=== PATIENT | male | born 1990 | race Caucasian/White ===

== ENCOUNTER 2018-09-14 14:47 | Emergency (ER) | payer SELFPAY ==
[2018-09-14 14:48] VITALS: BP 143/84; PULSE 67; RESP 19; TEMP 37; O2SAT 98; BMI 22.1
--- NOTE | 2018-09-14 15:36 | ED.VISSUMM ---
- ER Visit Summary Date of Service: 09/14/18 Chief Complaint: Abscess History of Present Illness: The patient is a 27 M with a right facial absences yesterday since he tried to squeeze a pimple. Physical Examination: He is got a 2 cm induration and fluctuant region right cheek. No cellulitis Emergency Department Course and Treatment: 1% lidocaine was used, sterile conditions, #11 blade. There is a small incision about the loculations, gently irrigated. Patient tolerated procedure well. I will place him on clindamycin. Discharge stable condition Impression: Abscess face Incision and drainage This note was generated with [employer] dictation software. It may contain incorrect words, spelling, and punctuation that were not noted in review of the chart prior to signing ED Disposition - Plan for ED Patient: Disposition: Home or Assisted Living Instructions: ED Abscess IandD Prescriptions: Hydrocodone Bitart/Apap 5-325 [[place] 5MG-325MG] 1 tab PO Q4H PRN PRN 2 Days #5 tab PRN Reason: Pain Clindamycin [Cleocin] 300 mg PO TID #30 cap Referrals: Care Physician,No Primary [Primary Care Provider] - 3-5 Days
--- NOTE | 2018-09-14 15:40 | ED.DCSUM_ITS ---
- ER Visit Summary Date of Service: 09/14/18 Chief Complaint: Abscess History of Present Illness: The patient is a 27 M with a right facial absences yesterday since he tried to squeeze a pimple. Physical Examination: He is got a 2 cm induration and fluctuant region right cheek. No cellulitis Emergency Department Course and Treatment: 1% lidocaine was used, sterile conditions, #11 blade. There is a small incision about the loculations, gently irrigated. Patient tolerated procedure well. I will place him on clindamycin. Discharge stable condition Impression: Abscess face Incision and drainage This note was generated with [employer] dictation software. It may contain incorrect words, spelling, and punctuation that were not noted in review of the chart prior to signing ED Disposition - Plan for ED Patient: Disposition: Home or Assisted Living Instructions: ED Abscess IandD Prescriptions: Hydrocodone Bitart/Apap 5-325 [[place] 5MG-325MG] 1 tab PO Q4H PRN PRN 2 Days #5 tab PRN Reason: Pain Clindamycin [Cleocin] 300 mg PO TID #30 cap Referrals: Care Physician,No Primary [Primary Care Provider] - 3-5 Days
[2018-09-14 15:46] VITALS: BP 138/88; PULSE 78; RESP 16; O2SAT 98
[2018-09-14] MEDS: Clindamycin HCl 150 MG Capsule 450 MG PO (15:46)
== END 2018-09-14 15:50 | disposition home or self-care (01) ==
PROVIDERS: Emergency Provider Emergency Medicine
DX: L02.01 Cutaneous abscess of face (principal); Z72.0 Tobacco use
CPT/HCPCS: 10060; 99283

== ENCOUNTER 2021-08-08 17:42 | Emergency (ER) | payer MEDICAID, SELFPAY ==
[2021-08-08 17:43] VITALS: BP 123/71; PULSE 70; RESP 14; TEMP 36.3; O2SAT 99; BMI 29.2
[2021-08-08] MEDS: traMADol 50 MG Tablet 100 MG PO (18:01)
--- NOTE | 2021-08-08 18:05 | RAD_ITS ---
STUDY: X-RAY - RIGHT RADIUS AND ULNA REASON FOR EXAM: Male, 30 years old. Injury TECHNIQUE: 2 view(s) of the forearm. COMPARISON: None. FINDINGS: There is no demonstrated soft tissue swelling. Normal visualized radius. Normal visualized ulna. RAD/Forearm 2 Views IMPRESSION: Normal x-ray examination of the radius and ulna. Electronically Signed: Naomie Jeffers MD at 18:20 EDT ,
--- NOTE | 2021-08-08 18:06 | EX.ED.UPPERE ---
HPI History of Present Illness Chief Complaint: Upper Extremity Injury Informant: patient Occured/Mechanism Mechanism/Context: Yes blunt trauma and Yes fall Onset/Context/Timing Onset: Today (JPTA) Context: Sudden Onset Timing: Continuous Quality of Pain: Throbbing Location: right mid-forearm, more ulnar Current Severity: Severe Maximum Severity: Severe Worsened by: movement wrist, palpation Relieved by: remaining still, ice pack; Tylenol not really helping Associated Symptoms Associated Symptoms: Negative for Parasthesia, Weakness and Loss of Funtion Narrative Narrative: Patient states he was walking up some steps and slipped with one of his feet and as he was falling forward he braced himself and try to catch himself with his right upper extremity, hitting the concrete step against his mid right ulna. He is complaining of lots of pain in the middle of his right forearm. He has no wrist or elbow pain or other injury. [facility] Medical History History of fracture Home Medications NK 08/08/21 [History Last Taken Unknown] Allergy/AdvReac Type Severity Reaction Status Date / Time amoxicillin [Amoxicillin] Allergy Rash Verified 08/08/21 17:43 Surgical History no surgical history Social History Smoking Status: Current every day smoker tobacco type: cigarettes ROS ROS ED Constitutional Constitutional ED: Denies chills or fever(s) Musculoskeletal Musculoskeletal: Reports extremity pain; Denies neck pain Integumentary Denies Abrasions, rash or wounds Neurologic Neurologic: Denies paresthesias or weakness EXAM Physical Exam Const Vital Signs: 08/08/21 17:43 Temperature 97.4 F L Temperature Source Temporal Pulse Rate 70 Respiratory Rate 14 Blood Pressure 123/71 H Blood Pressure Mean 88 Pulse Ox 99 Oxygen Delivery Method Room Air Positive well nourished and well developed General Appearance ED: well developed and NAD Neck full ROM and supple Back/Spine normal ROM and normal to inspection Extremity Extremity Narrative: Tenderness in the right mid forearm without deformity. He has good range of the wrist and elbow without any bony prominence tenderness there. Neurovascular intact distally. Neuro oriented x3, no focal motor deficits and no sensory deficits noted Sensorium / Orientation: alert Psych mental status grossly normal and thought process normal Skin no wounds Rashes: no rashes MDM MDM MDM Narrative Medical decision making narrative: My interpretation 2 view x-ray series of the right forearm is negative for any fracture dislocation or other bony abnormality. There is some soft tissue swelling from apparent contusion. Patient is reassured, he was given some tramadol to help with the discomfort, supportive care advised. Discharge Plan Triage Chief Complaint: Upper Extremity Injury ED Provider: Shawn Trejo Dx/Rx/DC Orders Clinical Impression: Contusion of forearm, right, Fall (on) (from) other stairs and steps, initial encounter Instructions: Bruises (Contusions) Prescriptions: No Action NK RF: 0 Primary Care Provider: Fuad Nash Referrals: Fuad Nash MD [Primary Care Provider] - As Needed Disposition Disposition: Home, Self Care
== END 2021-08-08 18:30 | disposition home or self-care (01) ==
PROVIDERS: Emergency Provider Emergency Medicine; PCP Internal Medicine; Visit Provider Emergency Medicine
DX: S50.11XA Contusion of right forearm, initial encounter (principal); W10.9XXA Fall (on) (from) unspecified stairs and steps, initial encounter; F17.210 Nicotine dependence, cigarettes, uncomplicated
CPT/HCPCS: 73090; 99282

== ENCOUNTER 2021-09-08 12:42 | Emergency (ER) | payer MEDICAID, SELFPAY ==
[2021-09-08 12:43] VITALS: BP 119/80; PULSE 68; RESP 16; TEMP 36.6; O2SAT 99; BMI 28.5
[2021-09-08 12:58] VITALS: O2SAT 98
--- NOTE | 2021-09-08 13:04 | EX.ED.VIS.UR ---
HPI HPI - URI History of Present Illness Chief Complaint: Cough Narrative Narrative: Patient presents with upper respiratory infection type symptoms that has had for the last 3 days. He denies any fever but states he has been chilled with myalgias that are diffuse. Has been coughing. He states he does not feel short of breath. He has not received any COVID immunizations. He denies significant past medical history. He states his had a lot of runny nose and nasal congestion but no sore throat. He did take Mucinex today which upset his stomach and caused him to vomit while he was at work. He states that he is mainly here to make sure that he does not have Covid so that he can return to work. ROS ROS ED ROS Narrative Constitutional: No fever, no chills. HEENT: No sore throat. No neck pain. No loss of vision. Positive rhinorrhea with alternating nasal congestion. Cardiovascular: No chest pain. No palpitations. No pedal edema. Respiratory: Positive nonproductive cough, no shortness of breath. Abdominal: No abdominal pain. No nausea. No vomiting. Genitourinary: No dysuria. No hematuria. Musculoskeletal: Diffuse myalgias. No arthralgias. Neurologic: No headaches. No dizziness. No lightheadedness. Fleeting paresthesias of entire body. Skin: No rash. No change in color. Psychiatric: No depression. No anxiety. [facility] Medical History History of fracture Home Medications NK 08/08/21 [History Last Taken Unknown] Allergy/AdvReac Type Severity Reaction Status Date / Time amoxicillin [Amoxicillin] Allergy Rash Verified 09/08/21 12:46 Social History Smoking Status: Current every day smoker tobacco type: cigarettes EXAM Physical Exam Narrative Exam Narrative: Afebrile. Vital signs noted. Nontoxic-appearing. HEENT: Normocephalic. Atraumatic. PERRL, EOMI. Neck soft and supple. No point tenderness or step off. Cardiovascular: Regular rate and rhythm. No murmurs, rubs, or gallops appreciated. Respiratory: No tachypnea. Lungs clear to auscultation bilaterally. Gastrointestinal: Abdomen soft, nontender, with normoactive bowel sounds. No rebound or guarding. Neurological: Awake. Alert. Nonfocal, nonlateralizing. Skin: No rash. Normal color. No pallor. Musculoskeletal: No pedal edema. Full range of motion extremities. Const Vital Signs: 09/08/21 12:43 09/08/21 12:58 Temperature 97.9 F Temperature Source Temporal Pulse Rate 68 Respiratory Rate 16 Respiratory Effort Normal Respiratory Depth Normal Respiratory Pattern Normal Blood Pressure 119/80 Blood Pressure Mean 93 Pulse Ox 99 Oxygen Delivery Method Room Air Room Air MDM MDM MDM Narrative Medical decision making narrative: I do not feel chest x-ray is indicated. I do feel that he probably has a URI that is viral in nature. He was swabbed for Covid and influenza. He is positive for COVID-19, negative for influenza. His pulse ox is 99% on room air without evidence of hypoxia. I do not feel that Decadron is indicated. Additionally, I did offer him an albuterol inhaler, but he states he is not short of breath that he is merely coughing. He will take [id number] medications as needed and follow-up with her primary care physician. He was given a note to be off work for the next 5 days and encouraged to self isolate at home. I feel he can be discharged safely home with follow-up. Return instructions were reviewed. Disposition is discharged home in stable condition. Discharge Plan Triage Chief Complaint: Cough ED Provider: Ariel Murphy Dx/Rx/DC Orders Clinical Impression: COVID-19, Myalgia, Cough Instructions: Coronavirus Disease 2019 (COVID-19): Caring for Yourself or Others Prescriptions: No Action NK RF: 0 Stand Alone Forms: ED Work / School Excuse Primary Care Provider: Care Physician,No Primary Referrals: Temitope Guzman MD [STAFF PHYSICIAN] - 1 Week if not improving Care Physician,No Primary [Primary Care Provider] - Disposition Disposition: Home, Self Care
[2021-09-08 14:04] VITALS: BP 126/78; PULSE 66; RESP 16; TEMP 37.1; O2SAT 98
== END 2021-09-08 14:05 | disposition home or self-care (01) ==
PROVIDERS: Emergency Provider Emergency Medicine; Visit Provider Emergency Medicine
DX: U07.1 COVID-19 (principal); F17.210 Nicotine dependence, cigarettes, uncomplicated
CPT/HCPCS: 87428; 99282

== ENCOUNTER 2022-07-11 09:37 | Emergency (ER) | payer MEDICAID, SELFPAY ==
[2022-07-11 09:39] VITALS: BP 131/79; PULSE 80; RESP 17; TEMP 36.7; O2SAT 99; BMI 25.5
--- NOTE | 2022-07-11 09:55 | EDS_ITS ---
HPI History of Present Illness Chief Complaint: Laceration Detail of Chief Complaint: Laceration left index finger Informant: patient Narrative Narrative: Patient presents the emergency department with complaint of laceration to his left index finger. Patient states that he was hooking up with a hydraulic hose to the [place] he was about to use and he accidentally had the handle depressed and it started to spin and lacerated the dorsum of his left index finger over the DIP joint. Patient is up-to-date on tetanus. Patient states that he uses both arms at different times as he can switch for different activities. [facility] Medical History History of fracture Home Medications NK 08/08/21 [History Last Taken Unknown] Allergy/AdvReac Type Severity Reaction Status Date / Time amoxicillin [Amoxicillin] Allergy Rash Verified 07/11/22 09:37 Social History Smoking Status: Current every day smoker tobacco type: cigarettes ROS ROS ED Review of Systems ROS Unobtainable: other Constitutional Constitutional ED: Reports lethargy; Denies chills, fever(s), sweats or weight loss Eyes Eyes: Denies blurry vision, change in vision or diplopia ENT ENT ED: Denies rhinorrhea or sore throat Cardiovascular Cardiovascular: Denies chest pain, orthopnea or racing heartbeat Respiratory/Chest Respiratory/Chest: Denies cough, dyspnea, dyspnea on exertion, orthopnea or sputum Gastrointestinal Gastrointestinal: Denies abdominal pain, diarrhea, nausea or vomiting Genitourinary Genitourinary ED: Denies dysuria, hematuria or urinary frequency Musculoskeletal Musculoskeletal: Denies arthralgias, back pain, myalgias or neck pain Integumentary Reports other Details: Laceration to dorsum of left index finger ; Denies abscess, Abrasions or rash Neurologic Neurologic: Denies headache(s) or weakness Psychiatric Psychiatric: Denies anxiety, depression or suicidal thoughts Endocrine Endocrinology: Denies polydipsia, polyphagia or polyuria Hematologic/Lymphatic Hematologic/Lymphatic: Denies easy bleeding, easy bruising or lymphadenopathy Allergic/Immunologic Allergic/Immunologic ED: Denies mouth swelling, tongue swelling or urticaria EXAM Physical Exam Const Vital Signs: 07/11/22 09:39 Temperature 98.0 F Temperature Source Temporal Pulse Rate 80 Respiratory Rate 17 Blood Pressure 131/79 H Blood Pressure Mean 96 Pulse Ox 99 Oxygen Delivery Method Room Air Positive well nourished and well developed General Appearance ED: well developed and NAD HEENT Reports TM's clear and moist mucous membranes normocephalic and atraumatic; Negative for trauma or tenderness Tympanic Membrane ED: Yes TM's clear Eyes PERRL and EOMs intact bilaterally General Eye ED: Negative for pale conjunctiva or scleral icterus Neck no lymphadenopathy, supple and no JVD General: Negative for tenderness Chest Wall inspection of chest normal and palpation of chest normal Chest: Negative for tenderness Resp normal respiratory effort and clear to auscultation bilaterally Effort and Inspection: Negative for respiratory distress or pain with movement Auscultation: Negative for rhonchi, wheezes or diminished lung sounds Cardio regular rate, regular rhythm, S1 normal heart sound, S2 normal heart sound and no murmurs Peripheral Pulses: pulses 2+ throughout GI normal to inspection, nondistended, normoactive bowel sounds, soft to palpation, non-tender, non-distended and no masses Back/Spine no CVA tenderness and no thoracic nor lumbar tenderness Extremity Extremity Narrative: Left index finger-patient has a 1 cm laceration over the dorsum of the DIP joint. Laceration is superficial just barely through the epidermis. There is no fat extruding. Has normal range of motion flexion extension at the DIP and PIP joint. He is neurovascular intact. No active bleeding. General Extremety ED: Negative for edema General Extremity: Negative for edema Neuro oriented x3, CN's II-XII intact bilaterally, no sensory deficits noted and gait normal Sensorium / Orientation: awake, alert, oriented to person, oriented to place and oriented to time Motor Exam: strength 5/5 throughout and strength abnormal Psych mental status grossly normal Skin no rashes or lesions noted and no wounds MDM MDM MDM Narrative Medical decision making narrative: Patient has a laceration of 1 cm over the dorsum of the DIP joint of the left index finger. Laceration is superficial. There is no active bleeding. Recommended cleaning the wound and applying Steri-Strips and a clean dressing. Patient is comfortable with this as he does not want stitches. Patient advised to keep an eye out for signs of infection such as redness, swelling, purulent drainage, or if condition should worsen anyway. Patient advised to follow-up with primary care physician in 3 to 5 days for wound check. Discharge Plan Triage Chief Complaint: Laceration ED Provider: Manolo Fernandez Dx/Rx/DC Orders Clinical Impression: Laceration of left index finger Instructions: ED Laceration Small or ... Prescriptions: No Action NK Primary Care Provider: Care Physician,No Primary Referrals: Fuad Nash MD [Med Staff - [employer]] - 3-5 Days Care Physician,No Primary [Primary Care Provider] - Disposition Disposition: Home, Self Care
[2022-07-11 10:04] VITALS: BP 118/79; PULSE 82; RESP 16; O2SAT 97
== END 2022-07-11 10:20 | disposition home or self-care (01) ==
LOC: ED 10:08
PROVIDERS: Emergency Provider Emergency Medicine; PCP Internal Medicine; Visit Provider Emergency Medicine
DX: S61.211A Laceration without foreign body of left index finger without damage to nail, initial encounter (principal); F17.210 Nicotine dependence, cigarettes, uncomplicated; W31.2XXA Contact with powered woodworking and forming machines, initial encounter
CPT/HCPCS: 99282

== ENCOUNTER 2024-02-09 20:50 | Emergency (ER) | payer SELFPAY ==
[2024-02-09 20:50] VITALS: BP 132/86; PULSE 120; RESP 16; TEMP 36.6; O2SAT 98; BMI 24.3
--- NOTE | 2024-02-09 21:56 | ED.RN ---
Pt observed ambulating out of dept yerogelioing I'm tired of this bullshit.
== END 2024-02-09 21:30 | disposition left against medical advice (07) ==
LOC: ED 22:57
PROVIDERS: PCP Internal Medicine
DX: H66.41 Suppurative otitis media, unspecified, right ear (principal); Z53.21 Procedure and treatment not carried out due to patient leaving prior to being seen by health care provider

== ENCOUNTER 2024-02-12 17:11 | Emergency (ER) | payer SELFPAY ==
[2024-02-12 17:11] VITALS: BP 135/79; PULSE 89; RESP 16; TEMP 37; O2SAT 100; BMI 23.8
--- NOTE | 2024-02-12 18:06 | EX.ED.DYSGE1 ---
HPI History of Present Illness Chief Complaint: Ear Problem Detail of Chief Complaint: Abscess or cyst from right ear canal. Informant: patient Onset/Context/Timing Onset: Days Context: Gradual Onset Timing: Continuous Current Severity: Mild Maximum Severity: Mild Narrative Narrative: Healthy 33-year-old male. Said he had right external ear canal pain for the last week. Monday night he came emerged part to be seen he said we were busy so he left and he pierces himself with a clean piercing needle. He has had some drainage since that time. But it is reaccumulated. Plan discomfort. Prior similar symptoms: Yes Recent Illness/Hospitalization: No PFSH PFSH Medical History History of fracture Home Medications ?Medication ?Instructions ?Recorded ?Last Taken ?Type cephalexin 500 mg capsule 500 mg PO Q6 7 days #28 CAPSULES 02/12/24 Unknown Rx Social History Smoking Status: Current every day smoker tobacco type: cigarettes ROS ROS ED ROS Narrative Denies recent illness. Constitutional Constitutional ED: Denies chills or fever(s) Eyes Eyes: Denies blurry vision ENT ENT ED: Denies ear pain Cardiovascular Cardiovascular: Denies chest pain Respiratory/Chest Respiratory/Chest: Denies cough or dyspnea Gastrointestinal Gastrointestinal: Denies abdominal pain Genitourinary Genitourinary ED: Denies dysuria or hematuria Musculoskeletal Musculoskeletal: Denies arthralgias Neurologic Neurologic: Denies headache(s) Psychiatric Psychiatric: Denies anxiety or depression Endocrine Endocrinology: Denies cold intolerance Hematologic/Lymphatic Hematologic/Lymphatic: Reports none Allergic/Immunologic Allergic/Immunologic ED: Denies mouth swelling, tongue swelling or urticaria EXAM Physical Exam Narrative Exam Narrative: Well-appearing 33-year-old male. Vital signs stable afebrile. H EENT exam pupils round react to light. Audible piercings. Right ear externally right at the opening of the ear canal he has a cyst or abscess. About the size of a pea. Neck nontender no lymphadenopathy. Lungs clear. Heart regular rhythm no murmur. Otherwise exam unremarkable. Const Vital Signs: 02/12/24 17:11 Temperature 98.6 F Temperature Source Temporal Pulse Rate 89 Respiratory Rate 16 Blood Pressure 135/79 H Blood Pressure Mean 97 Pulse Ox 100 Oxygen Delivery Method Room Air Positive well nourished and well developed; Negative for obese, cachectic, contractures or unkempt General Appearance ED: well developed and NAD; Negative for unkempt, cachectic, contractures, cyanotic, diaphoretic or pallor Nutritional Appearance: Negative for cachectic or obese HEENT Reports moist mucous membranes; Denies dry mucous membranes HEENT Narrative: Right external ear canal is a cyst or abscess. Negative for trauma or tenderness Mouth ED: No dry mucous membranes Mouth: No dry mucous membranes Eyes PERRL and EOMs intact bilaterally General Eye ED: Negative for pale conjunctiva or scleral icterus Neck no lymphadenopathy, supple and no JVD General: Negative for tenderness Lymph Lymphatic: Negative for other Chest Wall inspection of chest normal and palpation of chest normal Chest: Negative for other Resp normal respiratory effort and clear to auscultation bilaterally Effort and Inspection: Negative for retractions Auscultation: Negative for rales, rhonchi, wheezes or diminished lung sounds Cardio regular rate, regular rhythm, S1 normal heart sound, S2 normal heart sound and no murmurs GI normal to inspection, nondistended, normoactive bowel sounds, non-tender, non-distended and no masses Inspection: Negative for abdominal distention Auscultation: normoactive bowel sounds Palpation: soft; Negative for tender, guarding or rebound tenderness present Back/Spine no CVA tenderness Neuro oriented x3 and CN's II-XII intact bilaterally Sensorium / Orientation: alert Motor Exam: strength 5/5 throughout Psych mental status grossly normal Appearance: Negative for unkempt Attitude: No agitated Mood & Affect: Negative for depressed, anxious or tearful Skin no rashes or lesions noted, no wounds and skin turgor normal General Skin Exam: Negative for jaundice or pallor Lesions: No lesion noted Rashes: No rashes noted Trauma: Negative for abrasion Wounds: Negative for wounds noted MDM MDM MDM Narrative Medical decision making narrative: 33-year-old male with either a cyst or abscess at the ear canal opening. Will apply let to it. Then locally anesthetized with lidocaine. And make an incision and drainage. Incise and drain the right ear canal abscess. Is on the external surface. Let was previously applied. The night injected the area with about 2 to 3 cc of lidocaine. Made about 1/2 inch incision. Currently there was no pus. Mild bleeding. I then reevaluated the ear canal the canal itself is unremarkable proximal to the abscess and drained. But it looks like he has had a prior tympanic membrane rupture. Patient did not not have any history of that. He will be placed on Keflex 500 mg 4 times a day for a week. Follow-up with ENT if not resolving. History & Record Review Discussion w/independent historian: Patient and Significant other Procedures Other Procedures Procedure(s): Right ear canal abscess. Let applied. Injected with lidocaine. Cleaned with iodine prior. Made a small half inch incision. Currently no pus small amount of blood. Too small to pack. Patient instructed on wound care. ENT follow-up if not resolving. Placed on Keflex. Discharge Plan Triage Chief Complaint: Ear Problem Other Complaint: Abscess ED Provider: Pablo Murrell Dx/Rx/DC Orders Clinical Impression: Abscess of ear canal Instructions: ED Abscess Incision And Drainage Prescriptions: New cephalexin 500 mg capsule 500 mg PO Q6 7 Days Qty: 28 0RF Primary Care Provider: Fuad Nash Referrals: Nick Wolff MD [Med Staff - Active Staff] - 1 Week if not improving Fuad Nash MD [Primary Care Provider] - Activity Restrictions/Additional Instructions: Motrin and Tylenol for pain. The antibiotic Keflex 1 pill 4 times a day for 1 week. Warm compresses to your ear. Follow-up with the ENT doctor, Dr. Nick Milan if not going away to have this reevaluated and possibly surgically resected. Print Language: Hungarian Disposition Disposition: Home, Self Care
[2024-02-12] MEDS: Lidocaine 1% (20 ml mdv) 20 ML Vial 5 ML INFILT (18:32)
[2024-02-12] MEDS: Cephalexin 250 MG Capsule 500 MG PO (19:26)
[2024-02-12] MEDS: Lidocaine/Epi/Tetracaine 50 ML 1 APPLIC TOPICAL (19:26)
== END 2024-02-12 19:30 | disposition home or self-care (01) ==
PROVIDERS: Emergency Provider Emergency Medicine; PCP Internal Medicine; Visit Provider Emergency Medicine
DX: H60.01 Abscess of right external ear (principal); F17.210 Nicotine dependence, cigarettes, uncomplicated
CPT/HCPCS: 69000; 99284

== ENCOUNTER 2024-02-29 14:24 | Day surgery (SDC) | payer SELFPAY ==
[2024-02-29] VITALS (9 sets, daily range): BP systolic 123–143; BP diastolic 79–96; PULSE 80–101; RESP 16–22; TEMP 36.6–37; O2SAT 95–99; BMI 22.4
--- NOTE | 2024-02-29 14:55 | PCM.PRE.AN2 ---
ASA Classification* ASA Classification ASA Classification: 2 Assessment & Plan Anesthesia* Anesthesia Assessment Anesthesia Assessment: Discussed sedation and/or anesthesia options, risks, benefits, and alternatives with patient/parents/legal guardian/POA. Questions invited. The patient/parents/legal guardian/POA seems to understand and agrees to proceed with anesthesia plan. Reviewed the physical assessment, medical history, allergy history and patient home medications list prior to surgery/procedure/anesthetic and documented any changes. Performed airway and anesthesia risk assessments. 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 When Was Last Pacemaker Check QUESTION #4 FULL TEXT: You/Your Family Experience fever (hyperthermia) with Anesthesia Last Oral Intake Last Oral intake: Last Oral Intake NPO since Meds taken in AM with sips of water? Meds patient instructed to take am of surgery PONV PONV - market research coordinator: PONV - market research coordinator Female HX of Motion Sickness HX of N/V After Surgery Non-Smoker Duration of Surgery greater than 60 minutes Number of Risk Factors PONV Score Height & Weight Height & Weight: Anesthesia: Height & Weight Height 5 ft 8 in 02/12/24 17:11 Respiratory Assessment Respiratory Assessment - market research coordinator: Respiratory Tract Infection Hx - market research coordinator Hx Respiratory Tract Infection STOP Sleep Apnea STOP Sleep Apnea - market research coordinator: STOP Sleep Apnea - market research coordinator Hx Hypertension Hx Sleep Apnea CPAP BIPAP Do you snore loudly (louder than talking or can be heard Do you often feel tired/ fatigued/ sleepy during daytime? Has anyone observed you stop breathing during sleep? STOP Results QUESTION #5 FULL TEXT : Do you snore loudly (louder than talking or can be heard through closed doors)? Tobacco Use History Tobacco Use History - market research coordinator: Tobacco Use History - market research coordinator Tobacco Use Smoking Status Current every day smoker 02/12/24 17:35 Hx Tobacco Use Yes 06/03/17 17:18 Years Smoking Packs Smoked per Day Smoking Cessation Date was within the last 15 years Hx Smoking Cessation Date Hx Smoking Cessation No 02/12/24 17:35 Counseling Hematologic Medial History Hematologic Hx - market research coordinator: Hematologic Medical Hx - applied psychology chair Hx of Blood Transfusion Hx of Transfusion in last 3 Months Date of Last Transfusion (if within last 3 months) Ever experience any problems with transfusion(s)? Specify any problems Hx of Preganancy in last 3 Months Nurse Filling Out Transfusion & Questions: Date: Time: Patient unable to answer at this time (ie. confused, unrespo /Reproduction History /Reproductive History - market research coordinator: /Reproductive Hx- market research coordinator Hx Now Gestational Age (in weeks): EDC: Hx Hx Para Hx Section SAB Active Medications Active Medications: Current Medications Generic Name Dose Route Start Last Admin Trade Name Freq PRN Reason Stop Dose Admin Lactated Ringer's 1,000 mls @ 15 mls/hr 02/29/24 14:30 IV .Q48H DES PFSH Medical History History of fracture Home Medications ?Medication ?Instructions ?Recorded ?Last Taken ?Type NK 02/29/24 Unknown History Allergy/AdvReac Type Severity Reaction Status Date / Time No Known Allergies Allergy Verified 02/29/24 14:55 Social History Smoking Status: Current every day smoker tobacco type: cigarettes Review of Systems (Anesthesia) ROS Narrative System reviewed and no additional complaints, except as documented.
[2024-02-29] MEDS: Lactated Ringers 1,000 ML 15 ML IV (15:00)
[2024-02-29] MEDS: Cefazolin 2 GM in 0.9% Normal Saline (100mL Bag) 100 ML IV (15:21)
--- NOTE | 2024-02-29 15:30 | RAD_ITS ---
INDICATION: FX EXAMINATION/TECHNIQUE: X-RAY - LEFT XR Wrist 2 Views 3 VIEWS COMPARISON: No relevant prior comparison study available FINDINGS: 2 views of the wrist were obtained intraoperatively on a C-arm following open reduction internal fixation of fracture of the distal radius. Fluoroscopy time: 46 seconds. Radiation dose: 0.51 mGy. RAD/Wrist 2 Views IMPRESSION: Intraoperative exam as described above. Electronically Signed: Jeanmarie Vaca MD at 18:26 EDT ,
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
--- NOTE | 2024-02-29 17:00 | PCM.POST.ANE ---
Anesthesia: Postop Eval I Current Vital Signs Temperature: 98.6 F Pulse Rate: 97 Blood Pressure: 131/87 Respiratory Rate: 16 Pulse Ox: 95 Oxygen Delivery Method: Room Air Assessment Airway patent: Yes Spontaneous unlabored respirations: Yes Mental status: Awake nausea: No Vomiting: No Anesthesia Complication: No Fluid Hydration Crystalloid volume administer (ml): 950 Total IV fluid infused: 950 Progress Note Anesthesia document: Postop Eval 1 completed: Yes
--- NOTE | 2024-02-29 17:01 | PCM.POSTANE2 ---
Anesthesia Postop Eval I Sum Postop Eval Completion status Anesthesia document: Postop Eval 1 completed: Yes Anesthesia Postop Eval I Summary Anesthesia Postop Eval I Summary: Anesthesia Postop Eval I: Assessment Summary Airway patent Yes 02/29/24 17:01 Spontaneous unlabored Yes 02/29/24 17:01 respirations Mental status Awake 02/29/24 17:01 nausea No 02/29/24 17:01 Vomiting No 02/29/24 17:01 Anesthesia Postop Eval I: Fluid Summary Crystalloid volume administer 950 02/29/24 17:01 (ml) Colloids volume administered ( ml) Blood Product volume administered (ml) Total IV fluid infused 950 02/29/24 17:01 Anesthesia Postop Eval I: Summary Notes Anesthesia Complication No 02/29/24 17:01 Anesthesia Complication Comment: Post-operative progress note Anesthesia: Postop Eval II Evaluation Mental status: Awake Pain Level: 2 nausea: No Vomiting: No
[2024-02-29] MEDS: oxyCODONE 5 MG Tablet 10 MG PO (17:29)
[2024-02-29] MEDS: Acetaminophen 500 MG Tablet 1000 MG PO (17:30)
== END 2024-02-29 18:10 | disposition home or self-care (01) ==
LOC: SDC 14:27 → AC 14:28
PROVIDERS: PCP Internal Medicine; Referring Provider Internal Medicine; Visit Provider Student in an Organized Health Care Education/Training Program
PROC: (CPT 25526; principal; 2024-02-29 15:55)
DX: S52.572A Other intraarticular fracture of lower end of left radius, initial encounter for closed fracture (principal); S52.372A Galeazzi's fracture of left radius, initial encounter for closed fracture; F17.210 Nicotine dependence, cigarettes, uncomplicated; V00.842A Pedestrian on standing electric scooter colliding with stationary object, initial encounter
CPT/HCPCS: 25526; 25609; 01830; 64417; 73100; 76000; C1713; J7120; J2405

== ENCOUNTER 2024-08-11 15:09 | Emergency (ER) | payer MEDICAID, SELFPAY ==
[2024-08-11 15:09] VITALS: BP 149/83; PULSE 89; RESP 16; TEMP 36.9; O2SAT 98; BMI 25.7
--- NOTE | 2024-08-11 15:48 | EDS_ITS ---
HPI History of Present Illness Chief Complaint: Dental Narrative Narrative: Chief complaint and HPI: Left lower molar tooth pain. 33-year-old male with past medical history of schizoaffective disorder, marijuana abuse presents for evaluation of left lower molar pain. Patient states several months ago he developed a fracture in his left lower molar. He states since then he has fractured it 2 other times. He states for the past several months he has been having intermittent pain in that tooth. He states he is scheduled to see a dentist. He states the last several days the pain has worsened. He has been using Orajel, Tylenol, ibuprofen. Denies any fever, chills, nausea, vomiting, difficulty swallowing, difficulty speaking, shortness of breath, chest pain. Review of systems: See HPI Medications: As listed on the chart Allergies: As listed on the chart PFSH: Per chart Vital signs: As listed on the chart. Reviewed. Physical exam: Gen: A&O x3, NAD Head: Normocephalic, atraumatic Eyes: No sclera icterus, conjunctiva clear, PERRL, EOMI ENT: TMs clear BL, moist mucous membranes, posterior oropharynx unremarkable, uvula midline, tongue nonenlarged, no Martin angina or submandibular swelling, tooth #17 is chipped and tender to palpation, no abscess, mild gingiva ir ritation with mild tenderness, tolerating secretions, normal phonation, no facial swelling Neck: Trachea midline, No JVD, Full ROM, No meningismus, no swelling CV: RRR, no murmurs, no peripheral edema Resp: Lungs CTA BL, no w/r/c Skin: Warm, dry, no rash Neuro: Alert, oriented, grossly intact, sensation intact Psych: Cooperative, appropriate mood and affect [facility] Medical History (Updated 08/11/24 @ 15:[address] Isaac Orourke, ) Insomnia Schizo affective schizophrenia Substance abuse Marijuana use Smoker History of fracture Home Medications ?Medication ?Instructions ?Recorded ?Last Taken ?Type oxycodone 5 mg tablet 5 mg PO Q6H PRN pain 5 days #20 02/29/24 Unknown Rx tabs amoxicillin 875 mg-potassium 1 tab PO BID 7 days #14 t abs 08/11/24 Unknown Rx clavulanate 125 mg tablet Allergy/AdvReac Type Severity Reaction Status Date / Time No Known Allergies Allergy Verified 02/29/24 14:55 Social History Smoking Status: Current every day smoker tobacco type: cigarettes EXAM Physical Exam Const Vital Signs: 08/11/24 15:09 Temperature 98.4 F Temperature Source Temporal Pulse Rate 89 Respiratory Rate 16 Blood Pressure 149/83 H Blood Pressure Mean 105 Pulse Ox 98 Oxygen Delivery Method Room Air MDM MDM MDM Narrative Medical decision making narrative: 33-year-old male with past medical history of schizoaffective disorder, marijuana abuse presents for evaluation of left lower molar pain. Patient has a known tooth fracture. See physical exam findings. No dental abscess. Suspect dental infection versus symptomatic tooth fracture. Patient just took ibuprofen and Tylenol prior to arrival. Given his history of marijuana abuse and previous substance abuse, narcotics will not be given. Patient will be given his first dose of Augmentin here. He will be placed on prescription x 7 days. Tylenol and Motrin as needed for pain. Recommended soft diet. Recommended Orajel. Follow-up with dentist. Return precautions explained. He confirmed understand of the plan. Patient stable to discharge home. Impression: 1. Left molar dental infection 2. Left molar dental fracture Discharge Plan Triage Chief Complaint: Dental ED Provider: Isaac Orourke Dx/Rx/DC Orders Clinical Impression: Dental infection Instructions: ED Dental Pain Prescriptions: New amoxicillin-pot clavulanate 875-125 mg tablet 1 tab PO BID 7 Days Qty: 14 0RF No Action oxycodone 5 mg tablet 5 mg PO Q6H PRN (Reason: pain) 5 Days Qty: 20 0RF Primary Care Provider: Fuad Nash Referrals: Fuad Nash MD [Primary Care Provider] - 3-5 Days Activity Restrictions/Additional Instructions: You received your first dose of antibiotics here in the emergency department. Take your second dose this evening. Follow-up with the dentist that you have an appointment with. If you want a new dentist please see the list of dental clinics that was provided to you. Return back to the ED if symptoms change or worsen. Tylenol and ibuprofen as needed for pain. You can take 1 g of Tylenol every 6 hours. You can take 600 mg of ibuprofen every 4-6 hours. Continue Orajel and mouthwash. Continue to brush her teeth. Recommend softer foods. Print Language: [place] Islander Disposition Disposition: Home, Self Care Discharge Date/Time: 08/11/24 16:00
[2024-08-11] MEDS: Amox/Clavulanate 875 MG Tablet PO (16:00)
== END 2024-08-11 16:00 | disposition home or self-care (01) ==
PROVIDERS: Emergency Provider Surgery; PCP Internal Medicine; Referring Provider Surgery; Visit Provider Surgery
DX: K04.7 Periapical abscess without sinus (principal); S02.5XXA Fracture of tooth (traumatic), initial encounter for closed fracture; X58.XXXA Exposure to other specified factors, initial encounter; F17.210 Nicotine dependence, cigarettes, uncomplicated
CPT/HCPCS: 99282

== ENCOUNTER 2025-01-06 12:31 | Emergency (ER) | payer SELFPAY ==
[2025-01-06 12:31] VITALS: BP 126/85; PULSE 105; RESP 14; TEMP 36.6; O2SAT 98; BMI 23.2
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
[2025-01-06] MEDS: HYDROcodone Bitartrate/Apap 5/325 Tablet PO (13:39)
--- NOTE | 2025-01-06 13:40 | RAD_ITS ---
PROCEDURE: FOREARM 2 VIEWS 01/06/2025 REASON FOR EXAM: INJURY TECHNIQUE: FOREARM 2 VIEWS Laterality: Left COMPARISON: None FINDINGS: Two views of the left forearm were obtained and demonstrate a radiopaque plate and screws projected over the distal radius. There is no fracture or loosening of the radiopaque hardware. At the location of the most proximal portion of the plate, there is an obliquely oriented acute fracture. There is displacement of the distal fragment anteriorly by a proximally 100%. Soft tissue swelling is noted. The left wrist joint is intact. The left elbow joint is intact. The ulna bone appears to be intact. RAD/Forearm 2 Views IMPRESSION: Acute, obliquely oriented, displaced fracture through the distal diaphyseal reg ion left radius just proximal to the right radial plate and screws. Reading Location: [id number]
--- NOTE | 2025-01-06 13:40 | RAD_ITS ---
PROCEDURE: FOREARM 2 VIEWS 01/06/2025 REASON FOR EXAM: INJURY TECHNIQUE: FOREARM 2 VIEWS Laterality: Left COMPARISON: None FINDINGS: Two views of the left forearm were obtained and demonstrate a radiopaque plate and screws projected over the distal radius. There is no fracture or loosening of the radiopaque hardware. At the location of the most proximal portion of the plate, there is an obliquely oriented acute fracture. There is displacement of the distal fragment anteriorly by a proximally 100%. Soft tissue swelling is noted. The left wrist joint is intact. The left elbow joint is intact. The ulna bone appears to be intact. RAD/Forearm 2 Views IMPRESSION: Acute, obliquely oriented, displaced fracture through the distal diaphyseal reg ion left radius just proximal to the right radial plate and screws. Reading Location: [id number]
--- NOTE | 2025-01-06 14:00 | ED.RN ---
patient states he has to leave and check if his ride is in the parking lot still. patient offered a phone but states he does not have the number memorized because we have cells phones that keep the numbers for us. patient states he will be back
--- NOTE | 2025-01-06 14:04 | CON.PCM.OR_ITS ---
HPI Consult Data Date of Consult: 01/06/25 HPI Narrative HPI Narrative: GOPAL LEYVA, is a 34 M who presents L mid shaft radius fracture, proximal to prior long distal radius plate. punched a wall. [facility] Medical History Insomnia Schizo affective schizophrenia Substance abuse Marijuana use Smoker History of fracture Home Medications ?Medication ?Instructions ?Recorded ?Last Taken ?Type NK 01/06/25 Unknown History Allergy/AdvReac Type Severity Reaction Status Date / Time No Known Allergies Allergy Verified 01/06/25 12:32 Social History Smoking Status: Current every day smoker tobacco type: cigarettes Vital Signs Vital Signs Vital Signs: 01/06/25 12:31 Temperature 98 F Temperature Source Temporal Pulse Rate 105 H Respiratory Rate 14 Blood Pressure 126/85 H Blood Pressure Mean 98 Pulse Ox 98 Oxygen Delivery Method Room Air Weight Weight: 157 lb 5.15 oz Body Mass Index (BMI) 23.2 Imaging L mid shaft radius fracture, proximal to prior long distal radius plate. Assessment & Plan Assessment/Plan (1) Closed left radial fracture: PLAN: GOPAL LEYVA, is a 34 M who presents L mid shaft radius fracture, proximal to prior long distal radius plate. punched a wall. splint for now. no need to reduce, these recommended for surgery. would need to take out the plate and do long LCDC plate. coud be more difficult case. unsure what kind of plate in there now. recommend to splint, and FU in clinic this week for further discussion, possibly refer out.
--- NOTE | 2025-01-06 14:04 | CON.PCM.OR_ITS ---
HPI Consult Data Date of Consult: 01/06/25 HPI Narrative HPI Narrative: GOPAL LEYVA, is a 34 M who presents L mid shaft radius fracture, proximal to prior long distal radius plate. punched a wall. ON LICENSE OF [facility] Medical History Insomnia Schizo affective schizophrenia Substance abuse Marijuana use Smoker History of fracture Home Medications ?Medication ?Instructions ?Recorded ?Last Taken ?Type NK 01/06/25 Unknown History Allergy/AdvReac Type Severity Reaction Status Date / Time No Known Allergies Allergy Verified 01/06/25 12:32 Social History Smoking Status: Current every day smoker tobacco type: cigarettes Vital Signs Vital Signs Vital Signs: 01/06/25 12:31 Temperature 98 F Temperature Source Temporal Pulse Rate 105 H Respiratory Rate 14 Blood Pressure 126/85 H Blood Pressure Mean 98 Pulse Ox 98 Oxygen Delivery Method Room Air Weight Weight: 157 lb 5.15 oz Body Mass Index (BMI) 23.2 Imaging L mid shaft radius fracture, proximal to prior long distal radius plate. Assessment & Plan Assessment/Plan (1) Closed left radial fracture: PLAN: GOPAL LEYVA, is a 34 M who presents L mid shaft radius fracture, proximal to prior long distal radius plate. punched a wall. splint for now. no need to reduce, these recommended for surgery. would need to take out the plate and do long LCDC plate. coud be more difficult case. unsure what kind of plate in there now. recommend to splint, and FU in clinic this week for further discussion, possibly refer out.
[2025-01-06 14:22] VITALS: BP 119/79; PULSE 85; RESP 20; TEMP 37; O2SAT 97
== END 2025-01-06 14:35 | disposition home or self-care (01) ==
PROVIDERS: Emergency Provider Emergency Medicine; PCP Internal Medicine; Visit Provider Emergency Medicine
DX: S52.302A Unspecified fracture of shaft of left radius, initial encounter for closed fracture (principal); W22.01XA Walked into wall, initial encounter; F17.210 Nicotine dependence, cigarettes, uncomplicated
CPT/HCPCS: 29125; 73090; 99283

== ENCOUNTER 2025-05-02 23:05 | Emergency (ER) | payer SELFPAY ==
[2025-05-02 23:06] VITALS: BP 150/104; PULSE 113; RESP 18; TEMP 36.6; O2SAT 100; BMI 25.0
--- OUTSIDE RECORDS SUMMARY | 2025-05-02 23:51 | XMS RPT_ITS | CCD ---
Author Organization [facility] Care Team Providers Care Hospital Account Manager Name Role Phone DIFRANGIA, ALFREDA L Unavailable Unavailable DIFRANGIA, ALFREDA L Unavailable Unavailable NO REFERRING DR Unavailable Unavailable PHYSICIAN, NONE Primary Care Physician UnavailFuad Hutchinson MD Primary Care Provider [phone] FUAD SALDAÑA Primary Care Unavailable PHYSICIAN, NONE Primary Care Unavailable SHE BORRERO DO Attending Unavailable Saad GARCIA, Dr. Merida Primary Care Provider Sharad HESTER, Dr. Gray Referring Provider Dr. Isaac Orourke DO Emergency Provider Saad GARCIA, Dr. Merida Primary Care Provider Maya GARCIA, Dr. Escobar Emergency Provider Wei Perkins MD Attending Provider Fuad Saldaña Primary Care Unavailable Wei Perkins Attending Unavailable Fuad Saldaña Primary Care Unavailable Fuad Saldaña Referring Unavailable Murphy Alan Attending Unavailable Fuad Saldaña Primary Care Unavailable Isaac Orourke Attending UnavailIsaac Barraza Referring UnavailPablo Jones Attending Unavailable Fuad Saldaña Primary Care Unavailable Shawn Trejo Attending Unavailable Fuad Saldaña Primary Care Unavailable Fuad Saldaña Primary Care Unavailable Provider, Ed Physician Attending Jennifer pal Allergies Allergy Classification Reported Allergen(s) Allergy Type Date of Onset Reaction(s) Facility (10 sources) amoxicillin; Translations: [AMOXICILLIN] Drug Allergy 02-02-2005 [facility] Repository Medications Current Medications Medication Drug Class(es) Dates Sig (Normalized) Sig (Original) acetaminophen 325 mg / HYDROcodone bitartrate 5 mg oral tablet (4 sources) Opioid Agonist Start: 02-18-2024 End: 02-21-2024 take 1 tablet by mouth every six hours as needed for pain Gravette 325- 5 mg oral tablet Dose = 1 tab(s), Oral, q6hr, PRN as needed for pain, X 3 day(s), # 12 tab(s), 0 Refill(s), Closed fracture of distal end of left radius, 70.6 Start Date: 02/18/24 Stop Date: 02/21/24 Status: Ordered Start: 09-14-2018 End: 09-16-2018 Hydrocodone-Acetaminophen 1 TABLET tablet Discontinued 1 {tbl} PO EVERY 4 HOURS NEEDED as needed for Pain 5 2 0 September 14, 2018 12:00am September 15, 2018 12:00am September 16, 2018 12:10am Abscess Cutaneous abscess, unspecified Start: 09-14-2018 End: 09-16-2018 take 1 tablet by mouth every four hours as needed Hydrocodone-Acetaminophen Discontinued 1 TABLET PO EVERY 4 HOURS NEEDED 5 2 September 13, 2018 11:00pm September 15, 2018 11:10pm [id number] 200 actuat albuterol 0.09 mg/actuat metered dose inhaler (2 sources) beta2-Adrenergic Agonist Start: 01-29-2023 take 2 puff(s) by inhalation every four hours as needed for wheezing ProAir HFA MDI (90 mcg/inh) inhalation aerosol 2 puff(s), Inhalation, q4h, PRN as needed for wheezing, # 8.5 gram(s), 0 Refill(s) Start Date: 01/29/23 Status: Ordered benzonatate 100 mg oral capsule (1 source) Non-narcotic Antitussive Start: 07-05-2021 End: 07-12-2021 Tessalon Perles 100 mg oral capsule Dose : 100 mg = 1 cap(s), Oral, TID, PRN as needed for cough, X 7 day(s), # 21 cap(s), 0 Refill(s), 07/12/21 8:54:00 EST, Viral syndrome Start Date: 07/05/21 Stop Date: 07/12/21 Status: Ordered erythromycin 500 mg delayed release oral tablet (2 sources) Macrolide, Macrolide Antimicrobial Start: 01-27-2023 End: 02-06-2023 erythromycin 500 mg oral delayed release tablet Dose : 500 mg = 1 tab(s), Oral, q6h, X 10 day(s), # 40 tab(s), 0 Refill(s), 02/06/23 11:39:00 AM EDT, 48 Start Date: 01/27/23 Stop Date: 02/06/23 Status: Ordered Heathrow (Nk) (2 sources) Start: 01-06-2025 Heathrow (Nk) Active January 06, 2025 12:00am Start: 08-08-2021 Heathrow (Nk) A ctive August 08, 2021 12:00am omeprazole 20 mg delayed release oral tablet (2 sources) Proton Pump Inhibitor Start: 07-07-2021 take 1 tablet by mouth once daily before breakfast Omeprazole Magnesium (PRILOSEC OTC) 20 mg tablet Take 1 tablet by mouth daily before breakfast. 1/2 hr before meal. 30 tablet 5 07/07/2021 Active Completed/Discontinued Medications Medication Drug Class(es) Dates Sig (Normalized) Sig (Original) amoxicillin 875 mg / clavulanate 125 mg oral tablet (2 sources) Penicillin-class Antibacterial Start: 08-11-2024 End: 01-06-2025 Amoxicillin-Pot Clavulanate 875-125 mg tablet Discontinued 1 {tbl} PO TWICE A DAY 14 7 0 August 11, 2024 12:00am January 06, 2025 12:35pm cefTRIAXone 500 mg injection (2 sources) Cephalosporin Antibacterial Start: 12-25-2023 End: 12-25-2023 cefTRIAXone 500 mg intramuscular injection (ROCEPHIN) cephalexin 500 mg oral capsule (2 sources) Cephalosporin Antibacterial Start: 02-12-2024 End: 02-29-2024 take 1 capsule by mouth every six hours Cephalexin 500 mg capsule Discontinued 500 mg PO EVERY 6 HOURS 28 7 0 February 12, 2024 12:00am February 29, 2024 2:56pm codeine phosphate 2 mg/ml / guaiFENesin 20 mg/ml oral solution (2 sources) Opioid Agonist Start: 01-29-2023 End: 02-01-2023 take 1 dose by mouth every six hours as needed for cough codeine-guaifenesin 10 mg-100 mg/5 mL oral syrup Dose = 10 mL, Oral, q6h, PRN as needed for cough, # 120 mL, 0 Refill(s), Bronchitis, 48 Start Date: 01/29/23 Stop Date: 02/01/23 Status: Ordered doxycycline hyclate 100 mg oral capsule (2 sources) Tetracycline-class Drug Start: 01-29-2023 End: 02-05-2023 doxycycline hyclate 100 mg oral capsule Dose : 100 mg = 1 cap(s), Oral, BID, # 14 cap(s), 0 Refill(s), 48 Start Date: 01/29/23 Stop Date: 02/05/23 Status: Ordered oxyCODONE hydrochloride 5 mg oral tablet (2 sources) Opioid Agonist Start: 02-29-2024 End: 01-06-2025 take 1 tablet by mouth every six hours as needed for pain Oxycodone 5 mg tablet Discontinued 5 mg PO EVERY 6 HOURS as needed for pain 20 5 0 February 29, 2024 January 06, 2025 12:35pm Acute postoperative pain Other acute postprocedural pain predniSONE 20 mg oral tablet (2 sources) Start: 01-29-2023 End: 02-03-2023 predniSONE 20 mg oral tablet Dose : 40 mg = 2 tab(s), Oral, Daily, # 10 tab(s), 0 Refill(s) Start Date: 01/29/23 Stop Date: 02/03/23 Status: Ordered Problems Active Problems Problem Classification Problem Date Documented Date Episodic/Chronic Chronic obstructive pulmonary disease and bronchiectasis (1 source) Bronchitis; Translations: [Bronchitis, not specified as acute or chronic] Onset: 01-29-2023 Episodic E Codes: Fall (4 sources) Accidental fall ; Translations: [Fall (on) (from) other stairs and steps, initial encounter] 08-16-2021 Episodic Esophageal disorders (2 sources) Gastroesophageal reflux disease; Translations: [Gastro-esophageal reflux disease without esophagitis] Onset: 07-07-2021 07-07-2021 Chronic Fracture of upper limb (6 sources) Closed fracture of distal end of left radius; Translations: [Unspecified fracture of the lower end of left radius, initial encounter for closed fracture] Onset: 02-18-2024 Episodic Immunizations and screening for infectious disease (1 source) Exposure to sexually transmissible disorder; Translations: [Contact with and (suspected) exposure to infections with a predominantly sexual mode of transmission] 12-25-2023 Episodic Open wounds of extremities (3 sources) Laceration of left index finger; Translations: [Laceration without foreign body of left index finger without damage to nail, initial encounter] 07-11-2022 Episodic Other connective tissue disease (4 sources) Muscle pain; Translations: [Myalgia, unspecified site] 09-16-2021 Episodic Other ear and sense organ disorders (2 sources) Abscess of external auditory canal; Translations: [Abscess of external ear, unspecified ear] 02-20-2024 Episodic Other lower respiratory disease (4 sources) Cough; Translations: [Cough] 09-16-2021 Episodic Other nervous system disorders (2 sources) Acute postoperative pain; Translations: [Other acute postprocedural pain] 02-29-2024 Episodic Other upper respiratory infections (4 sources) Pharyngitis; Translations: [Acute pharyngitis, unspecified] 04-13-2013 Episodic Sexually transmitted infections (not HIV or hepatitis) (4 sources) Sexually transmitted infectious disease; Translations: [Unspecified sexually transmitted disease] 04-12-2013 Episodic Substance-related disorders (2 sources) Tobacco user; Translations: [Nicotine dependence, unspecified, uncomplicated] Onset: 07-07-2021 07-07-2021 Chronic Superficial injury; contusion (4 sources) Contusion of forearm; Translations: [Contusion of right forearm, initial encounter] 08-16-2021 Episodic Unclassified (1 source) Unknown / UNK(Unknown) Onset: 09-15-2015 Unclassified (1 source) Closed fracture of distal end of left radius 02-18-2024 Viral infection (5 sources) Viral disease; Translations: [Other viral agents as the cause of diseases classified elsewhere] Onset: 07-05-2021 Episodic Past or Other Problems Problem Classification Problem Date Documented Da te Episodic/Chronic Disorders of teeth and jaw (3 sources) Infection of tooth; Translations: [Periapical abscess without sinus] Onset: 08-20-2024 08-11-2024 Episodic Fracture of lower limb (2 sources) Closed fracture of lateral malleolus; Translations: [Displaced fracture of lateral malleolus of unspecified fibula, initial encounter for closed fracture] Onset: 02-21-2005 12-07-2023 Episodic Gastrointestinal hemorrhage (2 sources) Rectal hemorrhage; Translations: [Hemorrhage of anus and rectum] Onset: 07-07-2021 07-07-2021 Episodic Other ear and sense organ disorders (1 source) Abscess of right external ear; Translations: [Abscess of right external ear] Onset: 03-06-2024 Episodic Other gastrointestinal disorders (2 sources) Altered bowel function; Translations: [Change in bowel habit] Onset: 07-07-2021 07-07-2021 Episodic Otitis media and related conditions (1 source) Suppurative otitis media, unspecified, right ear; Translations: [Suppurative otitis media, unspecified, right ear] Onset: 03-03-2024 Episodic Substance-related disorders (2 sources) Marijuana user; Translations: [Cannabis use, unspecified, uncomplicated] Onset: 07-07-2021 07-07-2021 Episodic Unclassified (1 source) CHEMICAL DEPENDANCE Onset: 09-15-2015 Results Test Name Value Interpretation Reference Range Facil ity Consultation - Orthopedicson 01-06-2025 Consultation - Orthopedics [facility] Medical Records Department [address] [place] [address] Consultation - Orthopedics 01/06/25 1404 MR#: [id number] Acct: [id number] Name: GOPAL LEYVA JrMars Rep #: [id number] : 1990 34 From: Wei Perkins MD PCP: Dr. Fuad Saldaña MD Status:[facility] ER Location: ED HPI Consult Data Date of Consult: 01/06/25 HPI Narrative HPI Narrative: GOPAL LEYVA, is a 34 M who presents L mid shaft radius fracture, proximal to prior long distal radius plate. punched a wall. REPLACED BY [facility] Medical History Insomnia Schizo affective schizophrenia Substance abuse Marijuana use Smoker History of fracture Home Medications ???Medication ???Instructions ???Recorded ???Last Taken ???Type NK 01/06/25 Unknown History Allergy/AdvReac Type Severity Reaction Status Date / Time No Known Allergies Allergy Verified 01/06/25 12:32 Social History Smoking Status: Current every day smoker tobacco type: cigarettes Vital Signs Vital Signs Vital Signs: 01/06/25 12:31 Temperature 98 F Temperature Source Temporal Pulse Rate 105 H Respiratory Rate 14 Blood Pressure 126/85 H Blood Pressure Mean 98 Pulse Ox 98 Oxygen Delivery Method Room Air Weight Weight: 157 lb 5.15 oz Body Mass Index (BMI) 23.2 Imaging L mid shaft radius fracture, proximal to prior long distal radius plate. Assessment Plan Assessment/Plan (1) Closed left radial fracture: PLAN: GOPAL LEYVA, is a 34 M who presents L mid shaft radius fracture, proximal to prior long distal radius plate. punched a wall. splint for now. no need to reduce, these recommended for surgery. would need to take out the plate and do long LCDC plate. coud be more difficult case. unsure what kind of plate in there now. recommend to splint, and FU in clinic this week for further discussion, possibly refer out. 01/06/25 1407 Cosigner Signature (if applicable): CC: Dr. Fuad Saldaña MD Signed [facility] Emergency Department Summary on 01-06-2025 Emergency Department Summary [facility] Medical Records Department [address] [place] [address] Emergency Department Summary 01/06/25 MR#: [id number] Acct: [id number] Name: GOPAL LEYVA Jr. Rep #: [id number] : 1990 34 From: Shawn Trejo MD PCP: Dr. Fuad Saldaña MD Status:DEP ER Location: ED HPI History of Present Illness Chief Complaint: Upper Extremity Injury Informant: patient Narrative Narrative: 34-year-old male states he injured his left forearm last night by being drunk and punching a wall on accident. He denies any numbness. He has a history of wrist fracture with ORIF remotely. He has pain right now from his left wrist to his elbow. [facility] Medical History Insomnia Schizo affective schizophrenia Substance abuse Marijuana use Smoker History of fracture Home Medications ???Medication ???Instructions ???Recorded ???Last Taken ???Type NK 01/06/25 Unknown History Allergy/AdvReac Type Severity Reaction Status Date / Time No Known Allergies Allergy Verified 01/06/25 12:32 Social History Smoking Status: Current every day smoker tobacco type: cigarettes ROS ROS ED Constitutional Constitutional ED: Denies chills or fever(s) Musculoskeletal Musculoskeletal: Reports extremity pain; Denies neck pain Integumentary Denies Abrasions, rash or wounds Neurologic Neurologic: Denies paresthesias or weakness EXAM Physical Exam Const Vital Signs: 01/06/25 12:31 Temperature 98 F Temperature Source Temporal Pulse Rate 105 H Respiratory Rate 14 Blood Pressure 126/85 H Blood Pressure Mean 98 Pulse Ox 98 Oxygen Delivery Method Room Air Positive well nourished and well developed General Appearance ED: well developed and NAD Neck full ROM and supple Back/Spine normal ROM and normal to inspection Extremity Extremity Narrative: Limited range of motion left upper extremity due to pain. There is tenderness and swelling at the mid forearm. There is no tenderness or swelling at the bony prominences of the elbow or the wrist but he has limited range of motion of both due to pain in forearm. Neurovascular intact distally. Strong 2+/4 radial pulse. Neuro oriented x3, no focal motor deficits and no sensory deficits noted Sensorium / Orientation: alert Psych thought process normal Mood Affect: anxious Skin no wounds Rashes: no rashes MDM MDM MDM Narrative Medical decision making narrative: Three-view x-rays of the left forearm in my interpretation shows a periprosthetic fracture of the mid radial shaft, just proximal to the end of his plate that is present across his distal radial third. It is mildly displaced. There is no associated dislocation at the wrist or the elbow. Radiology in agreement. Back to evaluate the patient and he had left but he came back and we splinted him see the procedure note. Discussed with Dr. Perkins, he agreed that it did not need to be reduced but splinting would be appropriate and to have him follow-up. When I discussed with the patient, he states that Dr. Alan did his initial surgery and he wants to follow-up with him which I think is absolutely reasonable. Management Discussion w/another healthcare provider: Internet Marketing Strategist (Ortho) Procedures Upper Extremity Splints Upper Extremity Splint: Orthoglass (Sugar-tong forearm splint, neurovascularly intact distally after placement in 90 degree angle and sling) Splint Fabrication: Fabricated Location: Left Discharge Plan Triage Chief Complaint: Upper Extremity Injury ED Provider: Shawn Trejo Dx/Rx/DC Orders Clinical Impression: Fracture of radial shaft, left, closed Instructions: Splint Care, ED Fracture, Upper Extremity Prescriptions: No Action NK Primary Care Provider: Fuad Saldaña Referrals: Murphy Alan DO [Med Staff - Active Staff] - As soon as possible Print Language: [place] Disposition Disposition: Home, Self Care Discharge Date/Time: 01/06/25 14:35 What to do if you have Problems For any increased pain, shortness of breath, bleeding, nausea or vomiting, chest pain, or any unexpected problems, contact your Primary Care Provider. Call [facility] ([phone]) or report to the closest Emergency Room. Call 911 if necessary. 01/06/25 1526 Cosigner Signature (if applicable): CC: Dr. Murphy Alan DO; Dr. Fuad Saldaña MD Signed [facility] Forearm 2 Viewson 01-06-2025 Forearm 2 Views [facility] Imaging Services [address] [place] [id number] Forearm 2 Views MR#: [id number] Acct: [id number] Name: GOPAL LEYVA JrMars Rep #: [id number] : 1990 M 34 From: Vibha Rdz PCP: Dr. Fuad Saldaña MD Status: REG ER Study: Forearm 2 Views Date of Exam: 01/06/25 Exam# [id number] Ordering Dr: Shawn Trejo MD PROCEDURE: FOREARM 2 VIEWS 01/06/2025 REASON FOR EXAM: INJURY TECHNIQUE: FOREARM 2 VIEWS Laterality: Left COMPARISON: None FINDINGS: Two views of the left forearm were obtained and demonstrate a radiopaque plate and screws projected over the distal radius. There is no fracture or loosening of the radiopaque hardware. At the location of the most proximal portion of the plate, there is an obliquely oriented acute fracture. There is displacement of the distal fragment anteriorly by a proximally 100%. Soft tissue swelling is noted. The left wrist joint is intact. The left elbow joint is intact. The ulna bone appears to be intact. RAD/Forearm 2 Views IMPRESSION: Acute, obliquely oriented, displaced fracture through the distal diaphyseal region left radius just proximal to the right radial plate and screws. Reading Location: [id number] CC: Dr. Shawn Trejo MD; Dr. Fuad Saldaña MD Paint Department Supervisor: Signed [facility] Emergency Department Summary on 08-11-2024 Emergency Department Summary [facility] Medical Records Department [address] [place] [address] Emergency Department Summary 08/11/24 MR#: [id number] Acct: [id number] Name: GOPAL LEYVA Jr. Rep #: [id number] : 1990 33 From: Isaac Orourke DO PCP: Dr. Fuad Saldaña MD Status:DEP ER Location: ED HPI History of Present Illness Chief Complaint: Dental Narrative Narrative: Chief complaint and HPI: Left lower molar tooth pain. 33-year-old male with past medical history of schizoaffective disorder, marijuana abuse presents for evaluation of left lower molar pain. Patient states several months ago he developed a fracture in his left lower molar. He states since then he has fractured it 2 other times. He states for the past several months he has been having intermittent pain in that tooth. He states he is scheduled to see a dentist. He states the last several days the pain has worsened. He has been using Orajel, Tylenol, ibuprofen. Denies any fever, chills, nausea, vomiting, difficulty swallowing, difficulty speaking, shortness of breath, chest pain. Review of systems: See HPI Medications: As listed on the chart Allergies: As listed on the chart PFSH: Per chart Vital signs: As listed on the chart. Reviewed. Physical exam: Gen: A O x3, NAD Head: Normocephalic, atraumatic Eyes: No sclera icterus, conjunctiva clear, PERRL, EOMI ENT: TMs clear BL, moist mucous membranes, posterior oropharynx unremarkable, uvula midline, tongue nonenlarged, no Martin angina or submandibular swelling, tooth #17 is chipped and tender to palpation, no abscess, mild gingiva irritation with mild tenderness, tolerating secretions, normal phonation, no facial swelling Neck: Trachea midline, No JVD, Full ROM, No meningismus, no swelling CV: RRR, no murmurs, no peripheral edema Resp: Lungs CTA BL, no w/r/c Skin: Warm, dry, no rash Neuro: Alert, oriented, grossly intact, sensation intact Psych: Cooperative, appropriate mood and affect [facility] Medical History (Updated 08/11/24 @ 15:[address] Isaac Orourke, ) Insomnia Schizo affective schizophrenia Substance abuse Marijuana use Smoker History of fracture Home Medications ???Medication ???Instructions ???Recorded ???Last Taken ???Type oxycodone 5 mg tablet 5 mg PO Q6H PRN pain 5 days #20 Unknown Rx tabs amoxicillin 875 mg-potassium 1 tab PO BID 7 days #14 tabs 08/11 Unknown Rx clavulanate 125 mg tablet Allergy/AdvReac Type Severity Reaction Status Date / Time No Known Allergies Allergy Verified 02/29/24 14:55 Social History Smoking Status: Current every day smoker tobacco type: cigarettes EXAM Physical Exam Const Vital Signs: 08/11/24 15:09 Temperature 98.4 F Temperature Source Temporal Pulse Rate 89 Respiratory Rate 16 Blood Pressure 149/83 H Blood Pressure Mean 105 Pulse Ox 98 Oxygen Delivery Method Room Air MDM MDM MDM Narrative Medical decision making narrative: 33-year-old male with past medical history of schizoaffective disorder, marijuana abuse presents for evaluation of left lower molar pain. Patient has a known tooth fracture. See physical exam findings. No dental abscess. Suspect dental infection versus symptomatic tooth fracture. Patient just took ibuprofen and Tylenol prior to arrival. Given his history of marijuana abuse and previous substance abuse, narcotics will not be given. Patient will be given his first dose of Augmentin here. He will be placed on prescription x 7 days. Tylenol and Motrin as needed for pain. Recommended soft diet. Recommended Orajel. Follow-up with dentist. Return precautions explained. He confirmed understand of the plan. Patient stable to discharge home. Impression: 1. Left molar dental infection 2. Left molar dental fracture Discharge Plan Triage Chief Complaint: Dental ED Provider: Talib Orourke Dx/Rx/DC Orders Clinical Impression: Dental infection Instructions: ED Dental Pain Prescriptions: New amoxicillin-pot clavulanate 875-125 mg tablet 1 tab PO BID 7 Days Qty: 14 0RF No Action oxycodone 5 mg tablet 5 mg PO Q6H PRN (Reason: pain) 5 Days Qty: 20 0RF Primary Care Provider: Fuad Saldaña Referrals: Fuad Saldaña MD [Primary Care Provider] - 3-5 Days Activity Restrictions/Additi onal Instructions: You received your first dose of antibiotics here in the emergency department. Take your second dose this evening. Follow-up with the dentist that you have an appointment with. If you want a new dentist please see the list of dental clinics that was provided to you. Return back to the ED if symptoms change or worsen. Tylenol and ibuprofen as needed for pain. You can take 1 g of Tylenol (more content not included)... [facility] MR/POSTOP.[facility] 02-29-2024 MR/POSTOP.[facility] Medical Records Department [address] [place] [address] Anesthesia Postop Eval I 02/29/24 1700 MR#: [id number] Acct: [id number] Name: GOPAL LEYVA Rep #: [id number] : 1990 33 From: Dixon Burr MD PCP: Dr. Fuad Saldaña MD Status[place] [facility] Location: [place] [address] Anesthesia: Postop Eval I Current Vital Signs Temperature: 98.6 F Pulse Rate: 97 Blood Pressure: 131/87 Respiratory Rate: 16 Pulse Ox: 95 Oxygen Delivery Method: Room Air Assessment Airway patent: Yes Spontaneous unlabored respirations: Yes Mental status: Awake nausea: No Vomiting: No Anesthesia Complication: No Fluid Hydration Crystalloid volume administer (ml): 950 Total IV fluid infused: 950 Progress Note Anesthesia document: Postop Eval 1 completed: Yes 02/29/24 170 Date Dixon Burr MD Cosigner Signature: Date CC: Signed [facility] MR/[id number] 02-29-2024 MR/POSTOPAN2 [facility] Medical Records Department [address] [place] [address] Anesthesia Postop Eval II 02/29/24 1701 MR#: [id number] Acct: [id number] Name: GOPAL LEYVA Jr. Rep #: [id number] : 1990 33 From: Dixon Burr MD PCP: Dr. Fuad Saldaña MD Status:REG [facility] Y Race: C Location: [address] Anesthesia Postop Eval I Sum Postop Eval Completion status Anesthesia document: Postop Eval 1 completed: Yes Anesthesia Postop Eval I Summary Anesthesia Postop Eval I Summary: Anesthesia Postop Eval I: Assessment Summary Airway patent Yes 02/29/24 17:01 Spontaneous unlabored Yes 02/29/24 17:01 respirations Mental status Awake 02/29/24 17:01 nausea No 02/29/24 17:01 Vomiting No 02/29/24 17:01 Anesthesia Postop Eval I: Fluid Summary Crystalloid volume administer 950 02/29/24 17:01 (ml) Colloids volume administered ( ml) Blood Product volume administered (ml) Total IV fluid infused 950 02/29/24 17:01 Anesthesia Postop Eval I: Summary Notes Anesthesia Complication No 02/29/24 17:01 Anesthesia Complication Comment: Post-operative progress note Anesthesia: Postop Eval II Evaluation Mental status: Awake Pain Level: 2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 bulging. Left Ear: Hearing normal. No decreased hearing noted. No drainage, swelling or tenderness. Tympanic membrane is not perforated, erythematous or bulging. Nose: Nose normal. Mouth/Throat: Pharynx: Uvula midline. No uvula swelling. Tonsils: No tonsillar abscesses. Eyes: Pupils: Pupils are equal, round, and reactive to light. Cardiovascular: Rate and Rhythm: Normal rate and regular rhythm. Pulses: Normal pulses. Pulmonary: Effort: Pulmonary effort is normal. No respiratory distress. Breath sounds: Normal breath sounds. Chest: Chest wall: No tenderness. Abdominal: General: Bowel sounds are normal. There is no distension. Palpations: Abdomen is soft. Abdomen is not rigid. Tenderness: There is no abdominal tenderness. There is no right CVA tenderness, left CVA tenderness, guarding or rebound. Negative signs include Squires's sign and McBurney's sign. Genitourinary: Comments: Deferred exam Musculoskeletal: General: No tenderness. Cervical back: Normal range of motion. Lymphadenopathy: Head: Right side of head: No submental, submandibular, tonsillar, preauricular, posterior auricular or occipital adenopathy. Left side of head: No submental, (more content not included)... Normal [facility] LABORATORYOrdered By: Sally Tran on 01-29-2023 SARS-CoV-2 (COVID-19) RNA RUBINA+probe Ql (Resp) Negative results do not preclude SARS-CoV-2 infection and should not be used as the sole basis for patient management decisions. Negative results must be combined with clinical observations, patient history, and epidemiological information.There is a risk of false negative values resulting from improperly collected, transported, or handled specimens.There is a risk of false negative values due to the presence of sequence variants in the pathogen targets of the assay, procedural errors, amplification inhibitors in specimens, or inadequate numbers of organisms for amplification.SHANNA SARS-CoV-2 Assay is a Real-Time reverse-transcripta se polymerase chain reaction (RT-PCR) based qualitative in vitro diagnostic test intended for the qualitative detection of nucleic acid from the SARS-CoV-2 in nasopharyngeal swab specimens collected from individuals suspected of COVID-19 by their healthcare provider. Testing is limited to laboratories certified under the Clinical Laboratory Improvement Amendments of 1988 (CLIA), 42 U.S.C. 263a, to perform moderate and high complexity tests. Invalid Interpretation Code AO Auto Urine SS No Panel Informationon 09-08 SARS-CoV-2 & FLU Antigen (Rapid) SARS-CoV-2 (COVID 19) [facility] Work Phone: [id number] 07-05-2021 Date of Onset [id number] Invalid Interpretation Code [facility] ([place] Comment on above: Performed By: #### C OVD19 #### Kandice [address] [address] Employed in Healthcare No [facility] ([place]) Comment on above: Performed By: #### C OVD19 #### Kandice [place] [address] First Test Unknown [facility] ([place] Comment on above: Performed By: #### C OVD19 #### Kandice [address] [address] Hospitalized No [facility] ([place] Comment on above: Performed By: #### C OVD19 #### Kandice [address] [address] ICU No [facility] ([place] Comment on above: Performed By: #### C OVD19 #### Kandice [address] [address] Not [facility] ([place]) Comment on above: Performed By: #### C OVD19 #### Kandiceje [address] [address] Resides in Congregate Care Setting No [facility] ([place] Comment on above: Performed By: #### C OVD19 #### Kandice [address] [address] SARS-CoV-2 (COVID-19) RNA RUBINA+probe Ql (Unsp spec) Negative Normal Negative [facility] ([place] Comment on above: Performed By: #### C OVD19 #### Kandice [place] [address] SARS-CoV-2 (COVID-19) RNA RUBINA+probe Ql (Unsp spec) [facility] ([place]) Comment on above: Result Comment: Nega tive results do not preclude SARS-CoV-2 infection and should not be used as the sole basis for patient management decisions. Negative results must be combined with clinical observations, patient history, and epidemiological information. There is a risk of false negative values resulting from improperly collected, transported, or handled specimens. There is a risk of false negative values due to the presence of sequence variants in the pathogen targets of the assay, procedural errors, amplification inhibitors in specimens, or inadequate numbers of organisms for amplification. [employer] SARS-CoV-2 Assay is a Real-Time reverse-transcriptase polymerase chain reaction (RT-PCR) based qualitative in vitro diagnostic test intended for the qualitative detection of nucleic acid from the SARS-CoV-2 in nasopharyngeal swab specimens collected from individuals suspected of COVID-19 by their healthcare provider. Testing is limited to laboratories certified under the Clinical Laboratory Improvement Amendments of 1988 (CLIA), 42 U.S.C. ?263a, to perform moderate and high complexity tests. COVID-19 Int Performed By: #### C OVD19 #### [address] [address] Symptomatic as Defined by [facility] No [facility] ([place]) Comment on above: Performed By: #### C OVD19 #### [address] [address] LABORATORYOrdered By: Wilbert Mancilla on 07-05-2021 ADMITTED TO INTENSIVE CARE UNIT FOR CONDITION OF INTEREST:FIND:PT:^PA TIENT:ORD: No (07/05/21 8:59 AM) Invalid Interpretation Code AO Auto Urine SS EMPLOYED IN A HEALTHCARE SETTING:FIND:PT:^PAT IENT:ORD: No (07/05/21 8:59 AM) Invalid Interpretation Code AO Auto Urine SS FIRST TEST FOR CONDITION OF INTEREST:FIND:PT:^PA TIENT:ORD: Unknown (07/05/21 8:59 AM) Invalid Interpretation Code AO Auto Urine SS HAS SYMPTOMS RELATED TO CONDITION OF INTEREST:FIND:PT:^PA TIENT:ORD: No (07/05/21 8:59 AM) Invalid Interpretation Code AO Auto Urine SS Illness or injury onset date and time [id number] Invalid Interpretation Code AO Auto Urine SS Patient was hospitalized because of this condition No (07/05/21 8:59 AM) Invalid Interpretation Code AO Auto Urine SS status Not (07/05/21 8:59 AM) Invalid Interpretation Code AO Auto Urine SS RESIDES IN A CONGREGATE CARE SETTING:FIND:PT:^PAT IENT:ORD: No (07/05/21 8:59 AM) Invalid Interpretation Code AO Auto Urine SS SARS-CoV-2 (COVID-19) RNA RUBINA+probe Ql (Resp) Negative (07/05/21 8:59 AM) Invalid Interpretation Code Negative AO Auto Urine SS SARS-CoV-2 (COVID-19) RNA RUBINA+probe Ql (Unsp spec) Negative results do not preclude SARS-CoV-2 infection and should not be used as the sole basis for patient management decisions. Negative results must be combined with clinical observations, patient history, and epidemiological information.There is a risk of false negative values resulting from improperly collected, transported, or handled specimens.There is a risk of false negative values due to the presence of sequence variants in the pathogen targets of the assay, procedural errors, amplification inhibitors in specimens, or inadequate numbers of organisms for amplification.SHANNA SARS-CoV-2 Assay is a Real-Time reverse-transcripta se polymerase chain reaction (RT-PCR) based qualitative in vitro diagnostic test intended for the qualitative detection of nucleic acid from the SARS-CoV-2 in nasopharyngeal swab specimens collected from individuals suspected of COVID-19 by their healthcare provider. Testing is limited to laboratories certified under the Clinical Laboratory Improvement Amendments of 1988 (CLIA), 42 U.S.C. 263a, to perform moderate and high complexity tests. Invalid Interpretation Code AO Auto Urine SS Vital Signs Date Time Vital Sign Value Performing Clinician Facility 01-06-2025 14:22-0400 Body temperature 98.6 [degF] Dr. Fuad Saldaña MD Work Phone: [facility] 01-06-2025 14:22-0400 Diastolic blood pressure 79 mm[Hg] Dr. Fuad Saldaña MD Work Phone: [facility] 01-06-2025 14:22-0400 Heart rate 85 /min Dr. Fuad Saldaña MD Work Phone: 4(996)[phone] [place] [address] 01-06-2025 14:22-0400 Respiratory rate 20 /min Dr. Fuad Saldaña MD Work Phone: 0(131)[phone] [place] [address] 01-06-2025 14:22-0400 SaO2% (BldA) [Mass fraction] 97 % Dr. Fuad Saldaña MD Work Phone: 8([phone])[phone] [place] [address] 01-06-2025 14:22-0400 Systolic blood pressure 119 mm[Hg] Dr. Fuad Saldaña MD Work Phone: 1(667)449-580059 [place] [address] 01-06-2025 12:31-0400 Body height 175.[address] Fuad Saldaña MD Work Phone: 7(258)779-907959 [place] [address] 01-06-2025 12:31-0400 Body mass index (BMI) [Ratio] 23.2 kg/m2 Dr. Fuad Saldaña MD Work Phone: 3(150)[phone] [place] [address] 01-06-2025 12:31-0400 Body weight 71.[address] Fuad Saldaña MD Work Phone: 7(910)[phone] [place] [address] 08-11-2024 15:09-0400 Body height 172.[address] Fuad Saldaña MD Work Phone: 6(345)287-384159 [place] [address] 08-11-2024 15:09-0400 Body mass index (BMI) [Ratio] 25.7 kg/m2 Dr. Fuad Saldaña MD Work Phone: 8(550)361-399259 [place] [address] 08-11-2024 15:09-0400 Body temperature 98.4 [degF] Dr. Fuad Saldaña MD Work Phone: 2(023)[phone] [place] [address] 08-11-2024 15:09-0400 Body weight 76.[address] Fuad Saldaña MD Work Phone: 4(102)[phone] [place] [address] 08-11-2024 15:09-0400 Diastolic blood pressure 83 mm[Hg] Dr. Fuad Saldaña MD Work Phone: 3(609)326-289259 [place] [address] 03-16-2025 15:09-0400 Heart rate 89 /min Dr. Fuad Saldaña MD Work Phone: [facility] 08-11-2024 15:09-0400 Respiratory rate 16 /min Dr. Fuad Saldaña MD Work Phone: [facility] 08-11-2024 15:09-0400 SaO2% (BldA) [Mass fraction] 98 % Dr. Fuad Saldaña MD Work Phone: [facility] 08-11-2024 15:09-0400 Systolic blood pressure 149 mm[Hg] Dr. Fuad Saldaña MD Work Phone: [facility] 02-18-2024 12:25-0400 Blood Pressure Cuff Size SHE RICHEYKA DO [facility] 02-18-2024 12:25-0400 Blood Pressure Location SHE KAIDENKA DO [facility] 02-18-2024 12:25-0400 Blood Pressure Method SHE DARSHANAESKA DO [facility] 02-18-2024 12:25-0400 Diastolic Blood Pressure Non-Invasive 89 mm[Hg] SHE DURESKA DO [facility] 02-18-2024 12:25-0400 Heart rate 78 /min SHE DURESKA DO [facility] 02-18-2024 12:25-0400 Respiratory rate 18 /min SHE DURESKA DO [facility] 02-18-2024 12:25-0400 Systolic Blood Pressure Non-Invasive 132 mm[Hg] SHE DURESKA DO [facility] 02-18-2024 10:22-0400 Body temperature 97.16 [degF] SHE DURESKA DO [facility] 02-18-2024 10:22-0400 Body weight 70.6 kg SHE RICHEYKA DO [facility] 02-18-2024 10:22-0400 Diastolic Blood Pressure Non-Invasive 86 mm[Hg] SHE GILLILANDESKA DO [facility] 02-18-2024 10:22-0400 Heart rate 98 /min SHE GILLILANDESKA DO [facility] 02-18-2024 10:22-0400 Respiratory rate 18 /min SHE GILLILANDESKA DO [facility] 02-18-2024 10:22-0400 Systolic Blood Pressure Non-Invasive 124 mm[Hg] SHE RICHEYKA DO [facility] 12-25-2023 11:11-0400 Body mass index (BMI) [Ratio] 23.3 kg/m2 Ebony Pendmahendra INTERNET MARKETING STRATEGIST.LITERACY COACH Work Phone: [facility] 12-25-2023 11:11-0400 Body temperature 97.81 [degF] [facility] INTERNET MARKETING STRATEGIST.LITERACY COACH Work Phone: [facility] 12-25-2023 11:11-0400 Body weight 68.5 kg Ebony Chaney INTERNET MARKETING STRATEGIST.LITERACY COACH Work Phone: [facility] 12-25-2023 11:11-0400 Diastolic blood pressure 82 mm[Hg] Ebony Pendlebury INTERNET MARKETING STRATEGIST.LITERACY COACH Work Phone: [facility] 12-25-2023 11:11-0400 Heart rate 82 /min Ebony Pendmahendra INTERNET MARKETING STRATEGIST.LITERACY COACH Work Phone: [facility] 12-25-2023 11:11-0400 Respiratory rate 20 /min Ebony Pendlemicaela INTERNET MARKETING STRATEGIST.LITERACY COACH Work Phone: [facility] 12-25-2023 11:11-0400 SaO2% (BldA) [Mass fraction] 96 % Ebony Chaney INTERNET MARKETING STRATEGIST.LITERACY COACH Work Phone: [facility] 12-25-2023 11:11-0400 Systolic blood pressure 132 mm[Hg] Ebony Chaney INTERNET MARKETING STRATEGIST.LITERACY COACH Work Phone: [facility] 01-29-2023 17:08-0400 Body temperature 98.06 [degF] MECHELLE DUARTE MD [facility] 01-29-2023 17:08-0400 Diastolic Blood Pressure Non-Invasive 69 1 MECHELLE DUARTE MD [facility] 01-29-2023 17:08-0400 Systolic Blood Pressure Non-Invasive 110 1 MECHELLE DUARTE MD [facility] 01-27-2023 11:35-0400 Body temperature 98.06 [degF] DR JACKY ROLDAN MD [facility] 01-27-2023 11:35-0400 Body weight [address] JACKY ROLDAN MD [facility] 01-27-2023 11:35-0400 Diastolic Blood Pressure Non-Invasive [address] JACKY ROLDAN MD [facility] 01-27-2023 11:35-0400 Heart rate 72 /min DR JACKY ROLDAN MD [facility] 01-27-2023 11:35-0400 Respiratory rate 18 /min DR JACKY ROLDAN MD [facility] 01-27-2023 11:35-0400 Systolic Blood Pressure Non-Invasive [address] JACKY ROLDAN MD [facility] 07-11-2022 10:04-0500 Diastolic blood pressure 79 mm[Hg] [facility] 07-11-2022 10:04-0500 Heart rate 82 /min [facility] 07-11-2022 10:04-0500 Respiratory rate 16 /min [facility] 07-11-2022 10:04-0500 SaO2% (BldA) [Mass fraction] 97 % [facility] 07-11-2022 10:04-0500 Systolic blood pressure 118 mm[Hg] [facility] 07-11-2022 09:39-0500 Body height 172.72 cm [facility] 07-11-2022 09:39-0500 Body mass index (BMI) [Ratio] 25.5 kg/m2 [facility] 07-11-2022 09:39-0500 Body temperature 98 [degF] [facility] 07-11-2022 09:39-0500 Body weight 76.2 kg [facility] 09-08-2021 14:04-0400 Body temperature 98.7 [degF] [facility] Work Phone: 09-08-2021 14:04-0400 Diastolic blood pressure 78 mm[Hg] [facility] Work Phone: 09-08-2021 14:04-0400 Heart rate 66 /min [facility] Work Phone: 09-08-2021 14:04-0400 Respiratory rate 16 /min [facility] Work Phone: 09-08-2021 14:04-0400 SaO2% (BldA) [Mass fraction] 98 % [facility] Work Phone: 09-08-2021 14:04-0400 Systolic blood pressure 126 mm[Hg] [facility] Work Phone: 09-08-2021 12:43-0400 Body height 170.18 cm [facility] Work Phone: 09-08-2021 12:43-0400 Body mass index (BMI) [Ratio] 28.5 kg/m2 [facility] Work Phone: 09-08-2021 12:43-0400 Body weight 82.55 kg [facility] Work Phone: 08-08-2021 17:43-0400 Body mass index (BMI) [Ratio] 29.2 kg/m2 [facility] Work Phone: 08-08-2021 17:43-0400 Body temperature 97.4 [degF] [facility] Work Phone: 08-08-2021 17:43-0400 Body weight 84.7 kg [facility] Work Phone: 08-08-2021 17:43-0400 Diastolic blood pressure 71 mm[Hg] [facility] Work Phone: 08-08-2021 17:43-0400 Heart rate 70 /min [facility] Work Phone: 08-08-2021 17:43-0400 Respiratory rate 14 /min [facility] Work Phone: 08-08-2021 17:43-0400 SaO2% (BldA) [Mass fraction] 99 % [facility] Work Phone: 08-08-2021 17:43-0400 Systolic blood pressure 123 mm[Hg] [facility] Work Phone: 07-05-2021 08:48-0500 Body temperature 98.42 [degF] ALMA CUNNINGHAM MD [facility] 07-05-2021 08:48-0500 Diastolic blood pressure 74 mm[Hg] ALMA CUNNINGHAM MD [facility] 07-05-2021 08:48-0500 Heart rate 95 /min ALMA CUNNINGHAM MD [facility] 07-05-2021 08:48-0500 Mean blood pressure 91 mm[Hg] ALMA CUNNINGHAM MD [facility] 07-05-2021 08:48-0500 Respiratory rate 18 /min ALMA CUNNINGHAM MD [facility] 07-05-2021 08:48-0500 Systolic blood pressure 125 mm[Hg] ALMA CUNNINGHAM MD [facility] Encounters Encounter Date Encounter Type Care Provider Facility Start: 01-06-2025 ambulatory Fuad Mcleodi ty:[facility] Start: 01-06-2025 Non-patient / Non-visit Dr. Wei duran MD -[facility] Start: 01-06-2025 End: 01-06-2025 Emergency department patient visit Dr. Fuad Saldaña MD Work Phone: -Emergency Department Work Phone: Start: 08-11-2024 End: 08-11-2024 Emergency department patient visit Dr. Fuad Saldaña MD Work Phone: -Emergency Department Work Phone: Start: 02-29-2024 End: 02-29-2024 ambulatory Fuad Saldaña Facility:[facility] Start: 02-18-2024 End: 02-18-2024 Emergency department patient visit SHE BORRERO [facility] Start: 02-12-2024 End: 02-12-2024 Emergency department patient visit Pablo Murrell Facility:[facility] Start: 02-09-2024 End: 02-09-2024 Emergency department patient visit Fuad Saldaña Facility:[facility] Start: 12-26-2023 Telephone encounter Reynaldo mancilla INTERNET MARKETING STRATEGIST.LITERACY COACH Work Phone: [facility] Comment on above: Results Start: 12-25-2023 End: 12-25-2023 ambulatory FUAD SALDAÑA Facility:[facility] Start: 12-25-2023 End: 12-25-2023 Office outpatient visit 25 minutes Ebony Ritu CARRASQUILLO Work Phone: [facility] Comment on above: STD exposure (Primar y Dx) Start: 01-29-2023 End: 01-29-2023 Emergency department patient visit MECHELLE DUARTE MD [facility] Start: 01-27-2023 End: 01-27-2023 Emergency department patient visit DR JACKY ROLDAN MD [facility] Start: 07-11-2022 End: 07-11-2022 [facility] Start: 09-08-2021 End: 09-08-2021 Emergency department patient visit [facility] Start: 08-08-2021 End: 08-08-2021 Emergency department patient visit [facility] Start: 07-05-2021 End: 07-05-2021 Emergency department patient visit ALMA CUNNINGHAM MD [facility] Start: 09-15-2015 End: 10-28-2015 Ambulatory ALFREDA LEE Facility:[facility] Procedures Date Procedure Procedure Detail Performing Clinician Start: 01-06-2025 XR forearm, [address] Fuad Saldaña MD Work Phone: Start: 09-08-2021 SARS-CoV-2 & FLU Ant igen (Rapid) Start: 08-08-2021 X-ray of radius and ulna Plan of Treatment Date Care Activity Detail Author Start: 01-06-2025 [facility] Start: 08-11-2024 [facility] Start: 01-28-2024 Influenza vaccination Influenza Vacc ine (#1) [facility] Start: 01-27-2023 Covid-19 Vaccine ( season) Covid-19 Vaccine ( season) [facility] Start: 2010 Anxiety Screening Anxiety Screening [facility] Start: 2010 Depression Screening Depression Scre marcelo [facility] Start: 2010 Hepatitis C screening Hepatitis C Sc shay [facility] Start: 2010 HIV screening HIV Screening [facility] Start: 11-14-2003 Urine microalbumin profile DTaP,Tdap,Td Vaccine (6 - Tdap) [facility] Start: 1998 Pneumococcal vaccination Pneumococcal Vaccine (1 of 2 - PCV) [facility] Chlamydia trachomatis+Neisseria gonorrhoeae DNA [Presence] in Unspecified specimen by RUBINA with probe detection GONORRHEA/CHLAMYDIA NAAT Lab Routine STD exposure Ordered: 12/25/2023 [facility] Work Phone: Comment on above: Ordered: 12/25/2023 Patient Education [facility] Work Phone: Patient referral [facility] Work Phone: Immunizations Immunization Date Immunization Notes Care Provider Fa [facility] 02-16-1999 hepatitis B vaccine, pediatric or pediatric/adolescent dosage Ebony Chaney INTERNET MARKETING STRATEGIST.LITERACY COACH Work Phone: [facility] 02-16-1999 measles, mumps and rubella virus vaccine Ebony Chaney INTERNET MARKETING STRATEGIST.LITERACY COACH Work Phone: [facility] 01-14-1997 diphtheria, tetanus toxoids and acellular pertussis vaccine Ebony Chaney INTERNET MARKETING STRATEGIST.LITERACY COACH Work Phone: [facility] 01-14-1997 poliovirus vaccine, inactivated Ebony Chaney INTERNET MARKETING STRATEGIST.LITERACY COACH Work Phone: [facility] 07-13-1995 hepatitis B vaccine, pediatric or pediatric/adolescent dosage Ebony Chaney INTERNET MARKETING STRATEGIST.LITERACY COACH Work Phone: [facility] 06-09-1994 diphtheria, tetanus toxoids and acellular pertussis vaccine Ebony Chaney INTERNET MARKETING STRATEGIST.LITERACY COACH Work Phone: [facility] 06-09-1994 haemophilus influenz ae type b vaccine, HbOC conjugate Ebony Pendlebury INTERNET MARKETING STRATEGIST.LITERACY COACH Work Phone: [facility] 06-09-1994 poliovirus vaccine, inactivated Ebony Pendlebury INTERNET MARKETING STRATEGIST.LITERACY COACH Work Phone: [facility] 02-02-1994 measles, mumps and rubella virus vaccine Ebony Pendlebury INTERNET MARKETING STRATEGIST.LITERACY COACH Work Phone: [facility] 05-05-1993 diphtheria, tetanus toxoids and acellular pertussis vaccine Ebony Pendlebury INTERNET MARKETING STRATEGIST.LITERACY COACH Work Phone: [facility] 05-05-1993 haemophilus influenz ae type b vaccine, HbOC conjugate Ebony Pendlebury INTERNET MARKETING STRATEGIST.LITERACY COACH Work Phone: [facility] 05-05-1993 poliovirus vaccine, inactivated Ebony Pendlebury INTERNET MARKETING STRATEGIST.LITERACY COACH Work Phone: [facility] 03-10-1993 diphtheria, tetanus toxoids and acellular pertussis vaccine Ebony Pendlebury INTERNET MARKETING STRATEGIST.LITERACY COACH Work Phone: [facility] 03-10-1993 haemophilus influenz ae type b vaccine, HbOC conjugate Ebony Pendlebury INTERNET MARKETING STRATEGIST.LITERACY COACH Work Phone: [facility] 01-04-1993 diphtheria, tetanus toxoids and acellular pertussis vaccine Ebony Pendlebury INTERNET MARKETING STRATEGIST.LITERACY COACH Work Phone: [facility] 01-04-1993 haemophilus influenz ae type b vaccine, HbOC conjugate Ebony Pendlebury INTERNET MARKETING STRATEGIST.LITERACY COACH Work Phone: [facility] 01-04-1993 poliovirus vaccine, inactivated Ebony Pendlebury INTERNET MARKETING STRATEGIST.LITERACY COACH Work Phone: [facility] 1992 hepatitis B vaccine, pediatric or pediatric/adolescent dosage Ebony Pendlebury INTERNET MARKETING STRATEGIST.LITERACY COACH Work Phone: [facility] Payers Date Payer Category Payer Unknown [id number] Self-pay [id number] 1990 Unknown [id number] 2.16.8 [id number] Unknown Unknown S[employer] INSURANCE [id number] Unknown [id number] 2.16.8 [id number] Unknown [id number] 2.16.8 [id number] Unknown [id number] 2.16.8 [id number] Unknown [id number] 2.16.8 [id number] Unknown [id number] 2.16.8 [id number] Unknown [id number] 2.16.8 [id number] Social History Date Type Detail Facility [facility] Start: 1990 Sex Assigned At Male A [facility] Start: 09-08-2021 End: 07-11-2022 Tobacco smoking status MEIS Unknown if ever smoked [facility] Tobacco smoking status No Smokin g Status Entered [facility] Start: 12-25-2023 End: 01-06-2025 Tobacco smoking status NHIS Smokes tobacco daily [facility] History of tobacco use Cigarette Smoker [facility] Start: 07-07-2021 End: 12-25-2023 Cigarettes smoked current (pack per day) - Reported 1 [facility] Start: 12-25-2023 Tobacco use and exposure Smokeless tobacco non-user [facility] Start: 12-25-2023 Alcohol intake Current drinke r of alcohol (finding) [facility] Start: 07-07-2021 End: 12-25-2023 Tobacco use panel [facility] Adult Depression Screening Assessment 0 [facility] Start: 07-07-2021 Alcohol Comment rarely [facility] Start: 1990 Sex Assigned At Not on file [facility] Start: 02-18-2024 Tobacco smoking status Heavy t obacco smoker (finding) [facility] Start: 08-11-2024 Sex Male (finding) [facility] Medical Equipment Procedure Code Equipment Code Equipment Origin al Text Equipment Identifier Dates ORIF, fracture, radius, distal 2.4MM ELAINE NEAR CORTEX, LOCKING FDA Start: 02-29-2024 ORIF, fracture, radius, distal 3.5MM LOW PROFILE SCREW NON-LOCKING FDA Start: 02-29-2024 ORIF, fracture, radius, distal 3.5MM LOW PROFILE SCREW NON-LOCKING FDA Start: 02-29-2024 ORIF, fracture, radius, distal 3.5MM LOW PROFILE SCREW NON-LOCKING FDA Start: 02-29-2024 ORIF, fracture, radius, distal 3.5MM LOW PROFILE SCREW NON-LOCKING FDA Start: 02-29-2024 ORIF, fracture, radius, distal Orthopaedic fixation plate, non-bioabsorbable [id number] FDA Start: 02-29-2024 ORIF, fracture, radius, distal 2.4MM ELAINE NEAR CORTEX, LOCKING FDA Start: 02-29-2024 ORIF, fracture, radius, distal 3.5MM LOW PROFILE SCREW NON-LOCKING FDA Start: 02-29-2024 ORIF, fracture, radius, distal 3.5MM LOW PROFILE SCREW NON-LOCKING FDA Start: 02-29-2024 ORIF, fracture, radius, distal 3.5MM LOW PROFILE SCREW NON-LOCKING FDA Start: 02-29-2024 ORIF, fracture, radius, distal 3.5MM LOW PROFILE SCREW NON-LOCKING FDA Start: 02-29-2024 Functional Status Date Assessment Result Facility 02-18-2024 Functional Status Independent [facility] 02-18-2024 Functional Status Standard Safet y ID band on, Call device within reach, Bed in low position, Wheels locked, Bedside Cart Locked, Visitor at bedside, Safety level maintained [facility] 01-29-2023 Functional Status Independent [facility] Mental Status Date Assessment Result Facility 02-18-2024 Mental Status Orientation Oriented x 4 [facility] 02-18-2024 [facility] 01-29-2023 Mental Status Orientation Oriented x 4 [facility] Clinical Notes 07-05-2021 to 01-06-2025 Telephone Encounter - Marcelina Cosby MA - 12/26/2023 7:50 AM EDTTelephone Encounter - Marcelina Cosby MA - 12/26/2023 7:50 AM EDTPEbony borrego APRN.LITERACY COACH - 12/25/2023 11:13 AM EDT Note Date & Type Note Facility 01-06-2025 Radiology Diagnostic study note [facility] Imaging Services [address], [place] [address] Forearm 2 Views MR#: [id number] Acct: [id number] Name: GOPAL LEYVA Jr. Rep #: [id number] : 1990 M 34 From: Felipe Mederos DO PCP: Dr. Fuad Saldaña MD Status: R ER Study:Forearm 2 Views Date of Exam: 12/27 06/22 Exam# [id number] Ordering Dr: Patricia Trejo MD PROCEDURE: FOREARM 2 VIEWS 01/06/2025 REASON FOR EXAM: INJURY TECHNIQUE: FOREARM 2 VIEWS Laterality: Left COMPARISON: None FINDINGS: Two views of the left forearm were obtained and demonstrate a radiopaque plate and screws projected over the distal radius. There is no fracture or loosening of the radiopaque hardware. At the location of the most proximal portion of the plate, there is an obliquely oriented acute fracture. There is displacement of the distal fragment anteriorly by a proximally 100%. Soft tissue swelling is noted. The left wrist joint is intact. The left elbow joint is intact. The ulna bone appears to be intact. RAD/Forearm 2 Views IMPRESSION: Acute, obliquely oriented, displaced fracture through the distal diaphyseal region left radius just proximal to the right radial plate and screws. Reading Location: [id number] CC: Dr. Shawn Trejo MD; Dr. 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 This may be a small crack in the bone. Or it may be a major break, with the broken parts pushed out of position. Most fractures will heal without surgery. But you may need surgery if the bones are far out of place or if the break is near the elbow. Treatment is with a special sling called a shoulder immobilizer, or a splint or cast, depending on the type of fracture and where the fracture is located. This fracture takes 4 to 6 weeks or longer to heal. The cast may need to be changed in 2 to 3 weeks as swelling goes down. Home care Follow these guidelines when caring for yourself: If you were given a shoulder immobilizer, leave it in place. This will support the injured arm at your side. This is the best position for bone healing. The shoulder immobilizer can be adjusted. If it becomes loose, adjust it so that your forearm is level with the ground (horizontal). Your hand should be level with your elbow. Put an ice pack on the injured area. Do this for 20 minutes every 1 to 2 hours the first day for pain relief. You can make an ice pack by wrapping a plastic bag of ice cubes in a thin towel. As the ice melts, be careful that the cast/splint/sling doesn t get wet. You can put the ice pack inside the sling and directly over the splint or cast. Continue using the ice pack 3 to 4 times a day for the next 2 days. Then use the ice pack as needed to ease pain and swelling. Keep the cast, splint, or sling completely dry at all times. Bathe with your cast, splint, or sling out of the water. Protect it with a large plastic bag, rubber-banded or taped at the top end. If a fiberglass cast, splint, or sling gets wet, you can dry it with a instructor hairspring. You may use acetaminophen or ibuprofen to control pain, unless another pain medicine was prescribed. If you have chronic liver or kidney disease, talk with your healthcare provider before using these medicines. Also talk with your provider if you ve had a stomach ulcer or gastrointestinal bleeding. Don t put creams or objects under the cast if you have itching. Follow-up care Follow up with your healthcare provider as advised. This is to make sure the bone is healing the way it should. X-rays may be taken. You will be told of any new findings that may affect your care. When to seek medical advice Call your health care provider right away if any of these occur: The cast or splint cracks The plaster cast or splint becomes wet or soft The fiberglass cast or splint stays wet for more than 24 hours Bad odor from the cast or wound fluid stains the cast Tightness or pain under the cast or splint gets worse Fingers become swollen, cold, blue, numb, or tingly You can t move your fingers Skin around cast or splint becomes red or irritated Fever of 100.4 F (38 C) or higher, or chills as directed by your healthcare provider [id number] [employer]. [address] [place] [address]. All rights reserved. This information is not intended as a substitute for professional medical care. Always follow your healthcare professional's instructions. Follow Up Care 02/18/2024 10:15:23 With:JESSICA CALI MD, Orthopedic Address: [address] [place] [address] [facility] [place] [address] [phone] When:2-4 days With:Follow up with primary care provider Address:Unknown When:2-4 days [facility] 02-18-2024 Note Discharge Instructions Thank you for allowing [facility] to assist you with your healthcare needs. The following is important discharge information regarding your hospital visit. Diagnosis from Today's Visit Closed fracture of distal end of left radius What to Do Next Instructions from Your Care Team Discharge Home Equipment - Ordered -- Sling, Arm Left, 99 month(s), 02/18/24 12:17:00 EDT Post Acute Orders No qualifying data available. You Need to Schedule the Following Appointments Follow Up with JESSICA CALI MD, Orthopedic When:Within 2-4 days Where:[address] [place] [address] [facility] [place] [address] [phone] Follow Up with Follow up with primary care provider When:Within 2-4 days Allergies amoxicillin Medications Please ask your primary doctor or pharmacist before taking any other medication not listed, including over the counter drugs, herbal medications, vitamins and or supplements as they may interact with your home medications. What How Much When Why Instructions Last Dose New acetaminophen-hydrocodone (Gravette 325- 5 mg oral tablet) 1 tab(s) by mouth Every 6 hours as needed for as needed for pain Closed fracture of distal end of left radius Duration: 3 Days Printed Prescription Unchanged albuterol (ProAir HFA MDI (90 mcg/ inh) inhalation aerosol) 2 puff(s) by inhalation Every 4 hours as needed for as needed for wheezing Unchanged codeine-guaifenesin (codeine-guaifenesin 10 mg-100 mg/ 5 mL oral syrup) 10 Milliliter by mouth Every 6 hours as needed for as needed for cough Bronchitis Duration: 3 Days Unchanged doxycycline (doxycycline hyclate 100 mg oral capsule) 1 cap by mouth Two (2) times a day Duration: 7 Days Unchanged predniSONE (predniSONE 20 mg oral tablet) 2 tab(s) by mouth Every day Duration: 5 Days Please take this list to your next doctor s visit. Bring all medications you take, including over the counter medications, herbals and other supplements with you to your doctor s visit. Patients and families are reminded to discard old lists and to update any records with all medication providers or retail pharmacies. Medication Leaflets acetaminophen and hydrocodone (a SEET a MIN [place] fen and margaret GUALLPA done) Verdrocet What is the most important information I should know about acetaminophen and hydrocodone? MISUSE OF OPIOID MEDICINE CAN CAUSE ADDICTION, OVERDOSE, OR . Keep the medication in a place where others cannot get to it. Taking opioid medicine during may cause life-threatening withdrawal symptoms in the . Fatal side effects can occur if you use opioid medicine with alcohol, or with other drugs that cause drowsiness or slow your breathing. Stop taking this medicine and call your doctor right away if you have skin redness or a rash that spreads and causes blistering and peeling. What is acetaminophen and hydrocodone? Acetaminophen and hydrocodone is a combination medicine used to relieve moderate to severe pain. Acetaminophen and hydrocodone contains an opioid medicine, and may be habit-forming. Acetaminophen and hydrocodone may also be used for purposes not listed in this medication guide. What should I discuss with my healthcare provider before taking acetaminophen and hydrocodone? You should not use this medicine if you are allergic to acetaminophen or hydrocodone, or if you have: severe asthma or breathing problems; or a blockage in your stomach or intestines. Tell your doctor if you have ever had: breathing problems, sleep apnea (breathing stops during sleep); liver disease; a drug or alcohol addiction; kidney disease; a head injury or seizures; urination problems; or problems with your thyroid, pancreas, or gallbladder. If you use opioid medicine while you are , your baby could become dependent on the drug. This can cause life-threatening withdrawal symptoms in the baby after it is born. Babies born dependent on opioids may need medical treatment for several weeks. Ask a doctor before using opioid medicine if you are . Tell your doctor if you notice severe drowsiness or slow breathing in the nursing baby. How should I take acetaminophen and hydrocodone? Follow all directions on your prescription label. Never take this medicine in larger amounts, or for longer than prescribed. An overdose can damage your liver or cause . Tell your doctor if you feel an increased urge to use more of this medicine. Never share this medicine with another person, especially someone with a history of drug abuse or addiction. MISUSE CAN CAUSE ADDICTION, OVERDOSE, OR . Keep the medicine in a place where others cannot get to it. Selling or giving away this medicine is against the law. Measure liquid medicine carefully. Use the dosing syringe provided, or use a medicine dose-measuring device (not a kitchen spoon). If you need surgery or medical tests, tell the doctor ahead of time that you are using this medicine. You should not stop using this medicine suddenly. Follow your doctor's instructions about tapering your dose. Store at room temperature away from moisture and heat. Keep track of your medicine. You should be aware if anyone is using it improperly or without a prescription. Do not keep leftover opioid medication. Just one dose can cause in someone using this medicine accidentally or improperly. Ask your pharmacist where to locate a drug take-back disposal program. If there is no take-back program, flush the unused medicine down the toilet. What happens if I miss a dose? Since this medicine is used for pain, you are not likely to miss a dose. Skip any missed dose if it is almost time for your next dose. Do not use two doses at one time. What happens if I overdose? Seek emergency medical attention or call the Poison Help line at . An overdose of this medicine can be fatal, especially in a child or other person using the medicine without a prescription. Overdose symptoms may include nausea, vomiting, sweating, severe drowsiness, pinpoint pupils, slow breathing, or no breathing. Your doctor may recommend you get naloxone (a medicine to reverse an opioid overdose) and keep it with you at all times. A person caring for you can give the naloxone if you stop breathing or don't wake up. Your caregiver must still get emergency medical help and may need to perform CPR (cardiopulmonary resuscitation) on you while waiting for help to arrive. Anyone can buy naloxone from a pharmacy or local health department. Make sure any person caring for you knows where you keep naloxone and how to use it. What should I avoid while taking acetaminophen and hydrocodone? Avoid driving or operating machinery until you know how this medicine will affect you. Dizziness or drowsiness can cause falls, accidents, or severe injuries. Do not drink alcohol. Dangerous side effects or could occur. Ask a doctor or pharmacist before using any other medicine that may contain acetaminophen (sometimes abbreviated as APAP). Taking certain medications together can lead to a fatal overdose. What are the possible side effects of acetaminophen and hydrocodone? Get emergency medical help if you have signs of an allergic reaction: hives; difficulty breathing; swelling of your face, lips, tongue, or throat. Opioid medicine can slow or stop your breathing, and may occur. A person caring for you should give naloxone and/or seek emergency medical attention if you have slow breathing with long pauses, blue colored lips, or if you are hard to wake up. In rare cases, acetaminophen may cause a severe skin reaction that can be fatal. This could occur even if you have taken acetaminophen in the past and had no reaction. Stop taking this medicine and call your doctor right away if you have skin redness or a rash that spreads and causes blistering and peeling. Call your doctor at once if you have: noisy breathing, sighing, shallow breathing, breathing that stops; a light-headed feeling, like you might pass out; liver problems--nausea, upper stomach pain, tiredness, loss of appetite, dark urine, gal-colored stools, jaundice (yellowing of the skin or eyes); low cortisol levels-- nausea, vomiting, loss of appetite, dizziness, worsening tiredness or weakness; o high levels of serotonin in the body--agitation, hallucinations, fever, sweating, shivering, fast heart rate, muscle stiffness, twitching, loss of coordination, nausea, vomiting, diarrhea. Serious breathing problems may be more likely in older adults and in those who are debilitated or have wasting syndrome or chronic breathing disorders. Common side effects include: dizziness, drowsiness, feeling tired; nausea, vomiting, stomach pain; constipation; or headache. This is not a complete list of side effects and others may occur. Call your doctor for medical advice about side effects. You may report side effects to FDA at 2-332-DKJ-2154. What other drugs will affect acetaminophen and hydrocodone? You may have breathing problems or withdrawal symptoms if you start or stop taking certain other medicines. Tell your doctor if you also use an antibiotic, antifungal medication, heart or blood pressure medication, seizure medication, or medicine to treat HIV or hepatitis C. Opioid medication can interact with many other drugs and cause dangerous side effects or . Be sure your doctor knows if you also use: cold or allergy medicines, bronchodilator asthma/COPD medication, or a diuretic ('water pill'); medicines for motion sickness, irritable bowel syndrome, or overactive bladder; other opioids--opioid pain medicine or prescription cough medicine; a sedative like Valium--diazepam, alprazolam, lorazepam, Xanax, Klonopin, Versed, and others; drugs that make you sleepy or slow your breathing--a sleeping pill, muscle relaxer, medicine to treat mood disorders or mental illness; drugs that affect serotonin levels in your body--a stimulant, or medicine for depression, Parkinson's disease, migraine headaches, serious infections, or nausea and vomiting. This list is not complete. Other drugs may affect acetaminophen and hydrocodone, including prescription and tehv-xrg-rphsilf medicines, vitamins, and herbal products. Not all possible interactions are listed here. Where can I get more information? Your doctor or pharmacist can provide more information about acetaminophen and hydrocodone. Remember, keep this and all other medicines out of the reach of children, never share your medicines with others, and use this medication only for the indication prescribed. Every effort has been made to ensure that the information provided by [employer]. ('[employer]') is accurate, up-to-date, and complete, but no guarantee is made to that effect. Drug information contained herein may be time sensitive. [employer] information has been compiled for use by healthcare practitioners and consumers in the [place] and therefore [employer] does not warrant that uses outside of the [place] are appropriate, unless specifically indicated otherwise. [employer] drug information does not endorse drugs, diagnose patients or recommend therapy. [employer] drug information is an informational resource designed to assist licensed healthcare practitioners in caring for their patients and/or to serve consumers viewing this service as a supplement to, and not a substitute for, the expertise, skill, knowledge and judgment of healthcare practitioners. The absence of a warning for a given drug or drug combination in no way should be construed to indicate that the drug or drug combination is safe, effective or appropriate for any given patient. [employer] does not assume any responsibility for any aspect of healthcare administered with the aid of information [employer] provides. The information contained herein is not intended to cover all possible uses, directions, precautions, warnings, drug interactions, allergic reactions, or adverse effects. If you have questions about the drugs you are taking, check with your doctor, nurse or pharmacist. Copyright 9442-9472 [employer]. Version: 19.02. Revision Date: 09/05/2023. Education Materials Upper Extremity Fracture You have a break (fracture) of the arm, wrist, or hand. This may be a small crack in the bone. Or it may be a major break, with the broken parts pushed out of position. Most fractures will heal without surgery. But you may need surgery if the bones are far out of place or if the break is near the elbow. Treatment is with a special sling called a shoulder immobilizer, or a splint or cast, depending on the type of fracture and where the fracture is located. This fracture takes 4 to 6 weeks or longer to heal. The cast may need to be changed in 2 to 3 weeks as swelling goes down. Home care Follow these guidelines when caring for yourself: If you were given a shoulder immobilizer, leave it in place. This will support the injured arm at your side. This is the best position for bone healing. The shoulder immobilizer can be adjusted. If it becomes loose, adjust it so that your forearm is level with the ground (horizontal). Your hand should be level with your elbow. Put an ice pack on the injured area. Do this for 20 minutes every 1 to 2 hours the first day for pain relief. You can make an ice pack by wrapping a plastic bag of ice cubes in a thin towel. As the ice melts, be careful that the cast/splint/sling doesn t get wet. You can put the ice pack inside the sling and directly over the splint or cast. Continue using the ice pack 3 to 4 times a day for the next 2 days. Then use the ice pack as needed to ease pain and swelling. Keep the cast, splint, or sling completely dry at all times. Bathe with your cast, splint, or sling out of the water. Protect it with a large plastic bag, rubber-banded or taped at the top end. If a fiberglass cast, splint, or sling gets wet, you can dry it with a instructor hairspring. You may use acetaminophen or ibuprofen to control pain, unless another pain medicine was prescribed. If you have chronic liver or kidney disease, talk with your healthcare provider before using these medicines. Also talk with your provider if you ve had a stomach ulcer or gastrointestinal bleeding. Don t put creams or objects under the cast if you have itching. Follow-up care Follow up with your healthcare provider as advised. This is to make sure the bone is healing the way it should. X-rays may be taken. You will be told of any new findings that may affect your care. When to seek medical advice Call your health care provider right away if any of these occur: The cast or splint cracks The plaster cast or splint becomes wet or soft The fiberglass cast or splint stays wet for more than 24 hours Bad odor from the cast or wound fluid stains the cast Tightness or pain under the cast or splint gets worse Fingers become swollen, cold, blue, numb, or tingly You can t move your fingers Skin around cast or splint becomes red or irritated Fever of 100.4 F (38 C) or higher, or chills as directed by your healthcare provider [id number] [employer]. [address] [place] [address], [place] [address]. All rights reserved. This information is not intended as a substitute for professional medical care. Always follow your healthcare professional's instructions. Additional Information [employer] LIVES! Members of the community who have not yet received the COVID-19 vaccine and would like to receive it can visit one of [facility] vaccine clinics. There are many vaccine clinic locations within the [facility]. For locations and available times, please visit [email or web address] It is important to note that some COVID mobile vaccine clinics are held outdoors and may be canceled in rainy or stormy conditions. To learn more about pediatric vaccinations (ages 5-11), we invite you to visit the [employer] webpage. [email or web address] To learn more about the COVID-19 vaccine, we invite you to visit the CDC website for a list of frequently asked questions. https://www.cdc.gov/coronavirus/ 19-ncov/vaccines/faq.html [facility] Patient Portal Access Instructions: Stay connected with your healthcare team and access your personal medical information anytime with the [facility] Patient Portal. If you would like a full copy of your medical records please contact the [facility] Medical Records Department Monday through Monday between 8a.m. and 4:30p.m. Please follow the directions below to access the portal: 1.Access the email account you provided upon registration to the [facility].2.Look for an invitation email from [facility].3.Open the email and access the invitation link: Accept Invitation to [facility].Fill in the required boles to create your account. Sign into [email or web address] with your username and password that you created in the above steps to stay up to date. You can then view a summary of results, a summary of your visits, and the ability to download your summaries to your computer or send the information securely to a physician. Remember that your healthcare information is confidential, so carefully consider who you will allow to register on the [facility] Patient Portal for access to your information. You can also access the [facility] Patient Portal on the [employer]. Simply click on Health Records under Health Data and then click on the [employer] logo. HOW TO SAFELY DISPOSE OF PRESCRIPTION MEDICATIONS Please use one of the following methods to safely dispose of your unused medications. 1.Use a drug disposal kit: the drug disposal pouch allows you to safely discard your old and unused drugs. Ask your nurse to give you one when you are discharged.2.Visit a local take-back location: Many local pharmacies and police departments have programs that collect old and unwanted prescription drugs. Call your local pharmacy or go to http://C-nario.[employer]/7Y2Cw4k to find one close to you.3.Make use of household items: Use cat litter or old coffee grounds to dispose medications if other options are not available. Mix your drugs with these household products, seal them in an airtight container and throw it into the garbage. Call [facility]: [phone] to be sure your drugs can be disposed of in this way. Some medicines may require a different approach.4.Never flush your medications down the toilet. IF YOU HAVE BEEN PRESCRIBED AN OPIOIDS FOR PAIN If you have been prescribed an opioid (such as hydrocodone, oxycodone or morphine), it is critical to understand the possible side effects and risks of opioid pain medications. Even when taken as directed, opioids can have several side effects including: Tolerance, meaning you might need to take more of a medication for the same pain relief. Nausea, vomiting and/or constipation. Sleepiness, dizziness, dry mouth, confusion, depression or itching. Physical dependence, meaning you have withdrawal symptoms when a medication is stopped ? this can develop within a few days. KNOW YOUR RESPONSIBILITIES It is important to know exactly how much and how often to take the opioid pain medications you are prescribed. Never take opioids in higher amounts or more often than prescribed. Do not combine opioids with alcohol or other drugs that cause drowsiness, such as benzodiazepines, also known as benzos, including diazepam and alprazolam, muscle relaxants or sleep aids. Never sell or share prescription opioids. This is illegal. Store opioids in a secure place and out of reach of others (including children, family, friends and visitors). The last page(s) of this document has been signed and retained as a CHART COPY Signatures Patient Education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 Dose New albuterol (ProAir HFA MDI (90 mcg/ inh) inhalation aerosol) 2 puff(s) by inhalation Every 4 hours as needed for as needed for wheezing Printed Prescription New codeine-guaifenesin (codeine-guaifenesin 10 mg-100 mg/ 5 mL oral syrup) 10 Milliliter by mouth Every 6 hours as needed for as needed for cough Bronchitis Duration: 3 Days Printed Prescription New doxycycline (doxycycline hyclate 100 mg oral capsule) 1 cap by mouth Two (2) times a day Duration: 7 Days Printed Prescription New predniSONE (predniSONE 20 mg oral tablet) 2 tab(s) by mouth Every day Duration: 5 Days Printed Prescription Unchanged erythromycin (erythromycin 500 mg oral delayed release tablet) 1 tab(s) by mouth Every 6 hours Duration: 10 Days Please take this list to your next doctor s visit. Bring all medications you take, including over the counter medications, herbals and other supplements with you to your doctor s visit. Patients and families are reminded to discard old lists and to update any records with all medication providers or retail pharmacies. Education Materials Viral or Bacterial Bronchitis with Wheezing (Adult) Bronchitis is an infection of the air passages. It often occurs during a cold and is usually caused by a virus. Symptoms include cough with mucus (phlegm) and low-grade fever. This illness is contagious during the first few days and is spread through the air by coughing and sneezing, or by direct contact (touching the sick person and then touching your own eyes, nose, or mouth). If there is a lot of inflammation, air flow is restricted. The air passages may also go into spasm, especially if you have asthma. This causes wheezing and difficulty breathing even in people who do not have asthma. Bronchitis usually lasts 7 to 14 days. The wheezing should improve with treatment during the first week. An inhaler is often prescribed to relax the air passages and stop wheezing. Antibiotics will be prescribed if your doctor thinks there is also a secondary bacterial infection. Home care If symptoms are severe, rest at home for the first 2 to 3 days. When you go back to your usual activities, don't let yourself get too tired. Dont s'moke. Also avoid being exposed to secondhand smoke. You may use ybnr-jpf-gutofjj medicine to control fever or pain, unless another medicine was prescribed. Note: If you have chronic liver or kidney disease or have ever had a stomach ulcer or gastrointestinal bleeding, talk with your healthcare provider before using these medicines. Also talk to your provider if you are taking medicine to prevent blood clots.) Aspirin should never be given to anyone younger than 18 years of age who is ill with a viral infection or fever. It may cause severe liver or brain damage. Your appetite may be poor, so a light diet is fine. Stay well hydrated by drinking 6 to 8 glasses of fluids per day (such as water, soft drinks, sports drinks, juices, tea, or soup). Extra fluids will help loosen secretions in the nose and lungs. Fmxh-yuf-ournguw cough, cold, and sore-throat medicines will not shorten the length of the illness, but they may be helpful to reduce symptoms. (Note: Don't use decongestants if you have high blood pressure.) If you were given an inhaler, use it exactly as directed. If you need to use it more often than prescribed, your condition may be worsening. If this happens, contact your healthcare provider. If prescribed, finish all antibiotic medicine, even if you are feeling better after only a few days. Follow-up care Follow up with your healthcare provider, or as advised. If you had an X-ray or ECG (electrocardiogram), a specialist will review it. You will be notified of any new findings that may affect your care. If you are age 65 or older, or if you have a chronic lung disease or condition that affects your immune system, or you smoke, ask your healthcare provider about getting a pneumococcal vaccine and a yearly flu shot (influenza vaccine). When to seek medical advice Call your healthcare provider right away if any of these occur: Fever of 100.4 F (38 C) or higher, or as directed by your healthcare provider Coughing up increasing amounts of colored sputum Weakness, drowsiness, headache, facial pain, ear pain, or a stiff neck Call 911 Call 911 if any of these occur. Coughing up blood Worsening weakness, drowsiness, headache, or stiff neck Increased wheezing not helped with medication, shortness of breath, or pain with breathing [id number] [employer]. [address] [place] [address]. All rights reserved. This information is not intended as a substitute for professional medical care. Always follow your healthcare professional's instructions. Additional Information VACCINATE! IT SAVES LIVES! Members of the community who have not yet received the COVID-19 vaccine and would like to receive it can visit one of [facility] vaccine clinics. There are many vaccine clinic locations within the [facility]. For locations and available times, please visit [email or web address] [email or web address] It is important to note that some COVID mobile vaccine clinics are held outdoors and may be canceled in rainy or stormy conditions. To learn more about pediatric vaccinations (ages 5-11), we invite you to visit the [facility] webpage. https://[email or web address].org/pag [email or web address]-Rxjwu-Qjexsinfocn-Frequent [email or web address]-Jozdh-Kalrwimss.html To learn more about the COVID-19 vaccine, we invite you to visit the CDC website for a list of frequently asked questions. https://www.cdc.gov/coronavirus/-ncov/vaccines/faq.html [facility] Patient Portal Access Instructions: Stay connected with your healthcare team and access your personal medical information anytime with the [facility] Patient Portal. If you would like a full copy of your medical records please contact the [facility] Medical Records Department Monday through Monday between 8a.m. and 4:30p.m. Please follow the directions below to access the portal: 1.Access the email account you provided upon registration to the [facility].2.Look for an invitation email from [facility].3.Open the email and access the invitation link: Accept Invitation to [facility].Fill in the required boles to create your account. Sign into [email or web address] with your username and password that you created in the above steps to stay up to date. You can then view a summary of results, a summary of your visits, and the ability to download your summaries to your computer or send the information securely to a physician. Remember that your healthcare information is confidential, so carefully consider who you will allow to register on the [facility] Patient Portal for access to your information. You can also access the [facility] Patient Portal on the [employer] mynor. Simply click on Health Records under Health Data and then click on the [employer] logo. HOW TO SAFELY DISPOSE OF PRESCRIPTION MEDICATIONS Please use one of the following methods to safely dispose of your unused medications. 1.Use a drug disposal kit: the drug disposal pouch allows you to safely discard your old and unused drugs. Ask your nurse to give you one when you are discharged.2.Visit a local take-back location: Many local pharmacies and police departments have programs that collect old and unwanted prescription drugs. Call your local pharmacy or go to http://bit.[employer]/2Y1Pt9f to find one close to you.3.Make use of household items: Use cat litter or old coffee grounds to dispose medications if other options are not available. Mix your drugs with these household products, seal them in an airtight container and throw it into the garbage. Call [facility]: [phone] to be sure your drugs can be disposed of in this way. Some medicines may require a different approach.4.Never flush your medications down the toilet. IF YOU HAVE BEEN PRESCRIBED AN OPIOIDS FOR PAIN If you have been prescribed an opioid (such as hydrocodone, oxycodone or morphine), it is critical to understand the possible side effects and risks of opioid pain medications. Even when taken as directed, opioids can have several side effects including: Tolerance, meaning you might need to take more of a medication for the same pain relief. Nausea, vomiting and/or constipation. Sleepiness, dizziness, dry mouth, confusion, depression or itching. Physical dependence, meaning you have withdrawal symptoms when a medication is stopped ? this can develop within a few days. KNOW YOUR RESPONSIBILITIES It is important to know exactly how much and how often to take the opioid pain medications you are prescribed. Never take opioids in higher amounts or more often than prescribed. Do not combine opioids with alcohol or other drugs that cause drowsiness, such as benzodiazepines, also known as benzos, including diazepam and alprazolam, muscle relaxants or sleep aids. Never sell or share prescription opioids. This is illegal. Store opioids in a secure place and out of reach of others (including children, family, friends and visitors). The last page(s) of this document has been signed and retained as a CHART COPY Signatures Patient Education Materials Bronchitis With Wheezing (Adult) Medication Leaflets My discharge plan and instructions have been reviewed and explained to me and IGORDON WILLIAM M understand my current condition and have read and understand these discharge instructions. I have received a written copy of the plan/instructions. If I have questions, I am aware that I should contact my doctor. 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 The healthcare staff think your sore throat is caused by streptococcus (strep) bacteria. This is often called strep throat. Strep throat can cause throat pain that is worse when swallowing, aching all over, headache, and fever. The infection is contagious. It may be spread by coughing, kissing, or touching others after touching your mouth or nose. Antibiotic medicine is given to treat the infection. Home care Rest at home. Drink plenty of fluids so you won t get dehydrated. Stay home from work or school for the first 2 days of taking the antibiotics. After this time, you will not be contagious. You can then return to work or school if you are feeling better. Take the antibiotic medicine for the full 10 days, even when you feel better. This is very important to make sure the infection is fully treated. It is also important to prevent medicine-resistant germs from growing. If you were given an antibiotic shot, no more antibiotics are needed. You may use acetaminophen or ibuprofen to control pain or fever, unless another medicine was prescribed for this. If you have chronic liver or kidney disease or ever had a stomach ulcer or GI bleeding, talk with your healthcare provider before using these medicines. Use throat lozenges or a throat-numbing spray to help reduce throat pain. Gargling with warm salt water can also help reduce throat pain. Dissolve 1/2 teaspoon of salt in 1 glass of warm water. Don t eat salty or spicy foods. These can irritate the throat. Follow-up care Follow up with your healthcare provider or our staff if you don't get better over the next week. When to seek medical advice Call your healthcare provider right away if any of these occur: Fever as directed by your healthcare provider New or worse ear pain, sinus pain, or headache Painful lumps in the back of neck Stiff neck Lymph nodes that get larger Can t swallow liquids, a lot of drooling, or can t open mouth wide due to throat pain Signs of dehydration, such as very dark urine or no urine, sunken eyes, dizziness Trouble breathing or noisy breathing Muffled voice New rash Prevention Here are steps you can take to help prevent an infection: Keep good hand washing habits. Don t have close contact with people who have sore throats, colds, or other upper respiratory infections. Don t smoke, and stay away from secondhand smoke. Stay up to date with of your vaccines. [id number] [employer]. [address] [place] [address]. All rights reserved. This information is not intended as a substitute for professional medical care. Always follow your healthcare professional's instructions. Follow Up Care 01/27/2023 11:25:26 With:CONSTANTINE RAYO DO Address: [address] [place] [phone] When:2-4 days With:Call Physician Referral Address:Unknown When:2-4 days [facility] 01-27-2023 Note Discharge Instructions Thank you for allowing [facility] to assist you with your healthcare needs. The following is important discharge information regarding your hospital visit. Diagnosis from Today's Visit Sore throat - Adult What to Do Next Instructions from Your Care Team Discharge Return to Work, School, or Sports (Return to Work, School, or Sports) - Ordered -- 01/29/23, May return to: work, 01/27/23 11:38:00 EDT Post Acute Orders No qualifying data available. You Need to Schedule the Following Appointments Follow Up with CONSTANTINE RAYO DO When Within 2-4 days Where: [address] [place] [phone] Follow Up with Call Physician Referral When Within 2-4 days Allergies amoxicillin Medications Please ask your primary doctor or pharmacist before taking any other medication not listed, including over the counter drugs, herbal medications, vitamins and or supplements as they may interact with your home medications. What How Much When Instructions Last Dose New erythromycin (erythromycin 500 mg oral delayed release tablet) 1 tab(s) by mouth Every 6 hours Duration: 10 Days Printed Prescription Please take this list to your next doctor s visit. Bring all medications you take, including over the counter medications, herbals and other supplements with you to your doctor s visit. Patients and families are reminded to discard old lists and to update any records with all medication providers or retail pharmacies. Medication Leaflets erythromycin (oral/injection) (radha MUNOZ ronny KULKARNI jose) E.E.S. Granules, E.E.S.-400 Filmtab, EryPed 200, EryPed 400, Erik-Tab, Erythrocin Lactobionate, Erythrocin Lactobionate ADD-[place], Erythrocin Stearate Filmtab What is the most important information I should know about erythromycin? Tell your doctor about all your current medicines and any you start or stop using. Many drugs can interact, and some drugs should not be used together. What is erythromycin? Erythromycin is an antibiotic that is used to treat or prevent many different types of infections caused by bacteria. Erythromycin may also be used for purposes not listed in this medication guide. What should I discuss with my healthcare provider before using erythromycin? You should not use erythromycin if you are allergic to it. Some medicines can cause unwanted or dangerous effects when used with erythromycin. Your doctor may change your treatment plan if you also use: lovastatin, simvastatin; pimozide; or ergotamine, or dihydroergotamine. Tell your doctor if you have ever had: liver or kidney disease; myasthenia gravis; a heart rhythm disorder (especially if you take medicine to treat it); long QT syndrome (in you or a family member); or an electrolyte imbalance (such as low levels of potassium or magnesium in your blood). It is not known whether this medicine will harm an unborn baby. Tell your doctor if you are . It may not be safe to breastfeed while using this medicine. Ask your doctor about any risk. How should I use erythromycin? Follow all directions on your prescription label and read all medication guides or instruction sheets. Use the medicine exactly as directed. Erythromycin oral is taken by mouth. Erythromycin injection is given as an infusion into a vein, for a severe infection. A healthcare provider will give your first dose and may teach you how to properly use the medication by yourself. Read and carefully follow any Instructions for Use provided with your medicine. Ask your doctor or pharmacist if you don't understand all instructions. Prepare an injection only when you are ready to give it. Do not use if the medicine has changed colors or has particles in it. Call your pharmacist for new medicine. You may need to shake the liquid medicine before you measure a dose. Use the dosing syringe provided, or use a medicine dose-measuring device (not a kitchen spoon). Do not crush, chew, or break a delayed-release capsule or tablet. Swallow it whole. Use this medicine for the full prescribed length of time, even if your symptoms quickly improve. Skipping doses can increase your risk of infection that is resistant to medication. Erythromycin will not treat a viral infection such as the flu or a common cold. This medicine can affect the results of certain medical tests. Tell any doctor who treats you that you are using erythromycin. Store at room temperature away from moisture, heat, and light. What happens if I miss a dose? Use the medicine as soon as you can, but skip the missed dose if it is almost time for your next dose. Do not use two doses at one time. What happens if I overdose? Seek emergency medical attention or call the Poison Help line at . What should I avoid while using erythromycin? Antibiotic medicines can cause diarrhea, which may be a sign of a new infection. If you have diarrhea that is watery or bloody, call your doctor before using anti-diarrhea medicine. What are the possible side effects of erythromycin? Get emergency medical help if you have signs of an allergic reaction (hives, difficult breathing, swelling in your face or throat) or a severe skin reaction (fever, sore throat, burning eyes, skin pain, red or purple skin rash with blistering and peeling). Call your doctor at once if you have: severe stomach pain, diarrhea that is watery or bloody (even if it occurs months after your last dose); headache with chest pain and severe dizziness, fainting, fast or pounding heartbeats; a seizure; hearing problems (rare); pancreatitis--severe pain in your upper stomach spreading to your back, nausea and vomiting; or liver problems--loss of appetite, stomach pain (upper right side), tiredness, easy bruising or bleeding, dark urine, gal-colored stools, jaundice (yellowing of the skin or eyes). Serious side effects may be more likely in older adults, including hearing loss, or a life-threatening fast heart rate. Call your doctor if a baby using this medicine is vomiting or irritable with feeding. Common side effects may include: severe stomach pain, diarrhea that is watery or bloody (even if it occurs months after your last dose); liver problems; or abnormal liver function tests. This is not a complete list of side effects and others may occur. Call your doctor for medical advice about side effects. You may report side effects to FDA at 2-959-BQV-1071. What other drugs will affect erythromycin? Sometimes it is not safe to use certain medications at the same time. Some drugs can affect your blood levels of other drugs you take, which may increase side effects or make the medications less effective. Many drugs can affect erythromycin, and some drugs should not be used at the same time. Tell your doctor about all your current medicines and any medicine you start or stop using. This includes prescription and psei-ycr-ggxujvn medicines, vitamins, and herbal products. Not all possible interactions are listed here. Where can I get more information? Your pharmacist can provide more information about erythromycin. Remember, keep this and all other medicines out of the reach of children, never share your medicines with others, and use this medication only for the indication prescribed. Every effort has been made to ensure that the information provided by [employer]. ('[employer]') is accurate, up-to-date, and complete, but no guarantee is made to that effect. Drug information contained herein may be time sensitive. [employer] information has been compiled for use by healthcare practitioners and consumers in the [place] and therefore [employer] does not warrant that uses outside of the [place] are appropriate, unless specifically indicated otherwise. [employer] drug information does not endorse drugs, diagnose patients or recommend therapy. [employer] drug information is an informational resource designed to assist licensed healthcare practitioners in caring for their patients and/or to serve consumers viewing this service as a supplement to, and not a substitute for, the expertise, skill, knowledge and judgment of healthcare practitioners. The absence of a warning for a given drug or drug combination in no way should be construed to indicate that the drug or drug combination is safe, effective or appropriate for any given patient. [employer] does not assume any responsibility for any aspect of healthcare administered with the aid of information [employer] provides. The information contained herein is not intended to cover all possible uses, directions, precautions, warnings, drug interactions, allergic reactions, or adverse effects. If you have questions about the drugs you are taking, check with your doctor, nurse or pharmacist. Copyright 1919-9379 [employer], [facility]. Version: 16.01. Revision Date: 12/28/2022. dexamethasone (oral) (dex a METH a sone) Dexabliss 11-Day Dose Pack, DexAMETHasone Intensol, Dxevo 11-Day Dose Pack, Hemady, HiDex 6-Day Taper Package, TaperDex 12-Day, TaperDex 6-Day, TaperDex 7-Day, Zcort 7-Day What is the most important information I should know about dexamethasone? You should not use this medicine if you have a fungal infection anywhere in your body. Tell your doctor about all your medical conditions, and all the medicines you are using. There are many other diseases that can be affected by steroid use, and many other medicines that can interact with steroids. What is dexamethasone? There are many brands and forms of dexamethasone available. Not all brands are listed on this leaflet. Dexamethasone is a steroid that prevents the release of substances in the body that cause inflammation. Dexamethasone is used to treat many different conditions such as allergic disorders, skin conditions, ulcerative colitis, arthritis, lupus, psoriasis, or breathing disorders. Dexamethasone may also be used for purposes not listed in this medication guide. What should I discuss with my healthcare provider before taking dexamethasone? You should not use dexamethasone if you are allergic to it, or if you have: a fungal infection anywhere in your body. Tell your doctor if you have ever had: liver disease (such as cirrhosis); kidney disease; a thyroid disorder; malaria; tuberculosis; osteoporosis; a muscle disorder such as myasthenia gravis; diabetes (steroid medicine may increase glucose levels in your blood or urine); glaucoma or cataracts; herpes infection of the eyes; stomach ulcers, ulcerative colitis, diverticulitis, inflammatory bowel disease; depression or mental illness; congestive heart failure; or high blood pressure. Steroid medication affects your immune system. You may get infections more easily. Steroids can also worsen or reactivate an infection you've already had. Tell your doctor about any illness or infection you have had within the past several weeks. It is not known whether this medicine will harm an unborn baby. Tell your doctor if you are . You should not breastfeed while using dexamethasone. How should I take dexamethasone? Follow all directions on your prescription label and read all medication guides or instruction sheets. Your doctor may occasionally change your dose. Use the medicine exactly as directed. Your dose needs may change due to surgery, illness, stress, or a medical emergency. Tell your doctor about any such situation that affects you. This medicine can affect the results of certain medical tests. Tell any doctor who treats you that you are using dexamethasone. Do not stop using dexamethasone suddenly, or you could have unpleasant withdrawal symptoms. Ask your doctor how to safely stop using this medicine. In case of emergency, wear or carry medical identification to let others know you use dexamethasone. Store at room temperature away from moisture and heat. What happens if I miss a dose? Call your doctor for instructions if you miss a dose of dexamethasone. What happens if I overdose? Seek emergency medical attention or call the Poison Help line at . An overdose of dexamethasone is not expected to produce life threatening symptoms. detention use of high doses can lead to thinning skin, easy bruising, changes in body fat (especially in your face, neck, back, and waist), increased acne or facial hair, menstrual problems, impotence, or loss of interest in sex. What should I avoid while taking dexamethasone? Avoid being near people who are sick or have infections. Call your doctor for preventive treatment if you are exposed to chickenpox or measles. These conditions can be serious or even fatal in people who are using steroid medicine. Avoid drinking alcohol while you are taking dexamethasone. Do not receive a 'live' vaccine while using dexamethasone. The vaccine may not work as well during this time, and may not fully protect you from disease. Live vaccines include measles, mumps, rubella (MMR), polio, rotavirus, typhoid, yellow fever, varicella (chickenpox), and zoster (shingles). What are the possible side effects of dexamethasone? Get emergency medical help if you have signs of an allergic reaction: hives; difficulty breathing; swelling of your face, lips, tongue, or throat. Call your doctor at once if you have: muscle tightness, weakness, or limp feeling; blurred vision, tunnel vision, eye pain, or seeing halos around lights; shortness of breath (even with mild exertion), swelling, rapid weight gain; severe depression, unusual thoughts or behavior; a seizure (convulsions); bloody or tarry stools, coughing up blood; fast or slow heart rate, weak pulse; pancreatitis--severe pain in your upper stomach spreading to your back, nausea and vomiting; low potassium level--leg cramps, constipation, irregular heartbeats, fluttering in your chest, increased thirst or urination, numbness or tingling; or increased blood pressure--severe headache, blurred vision, pounding in your neck or ears, anxiety, nosebleed. Dexamethasone can affect growth in children. Tell your doctor if your child is not growing at a normal rate while using this medicine. Common side effects may include: fluid retention (swelling in your hands or ankles); increased appetite; mood changes, trouble sleeping; skin rash, bruising or discoloration; acne, increased sweating, increased hair growth; headache, dizziness; nausea, vomiting, upset stomach; changes in your menstrual periods; or changes in the shape or location of body fat (especially in your arms, legs, face, neck, breasts, and waist). This is not a complete list of side effects and others may occur. Call your doctor for medical advice about side effects. You may report side effects to FDA at 6-195-MPT-0107. What other drugs will affect dexamethasone? Sometimes it is not safe to use certain medications at the same time. Some drugs can affect your blood levels of other drugs you take, which may increase side effects or make the medications less effective. Tell your doctor about all your current medicines. Many drugs can affect dexamethasone, especially: an antibiotic or antifungal medicine; control pills or hormone replacement therapy; insulin or diabetes medications you take by mouth; medicine to treat dementia or Parkinson's disease; a blood thinner--warfarin, Coumadin, Jantoven; or NSAIDs (nonsteroidal anti-inflammatory drugs)--aspirin, ibuprofen (Advil, Motrin), naproxen (Aleve), celecoxib, diclofenac, indomethacin, meloxicam, and others. This list is not complete and many other drugs may affect dexamethasone. This includes prescription and zdbi-qwr-ddphnwp medicines, vitamins, and herbal products. Not all possible drug interactions are listed here. Where can I get more information? Your pharmacist can provide more information about dexamethasone. Remember, keep this and all other medicines out of the reach of children, never share your medicines with others, and use this medication only for the indication prescribed. Every effort has been made to ensure that the information provided by [employer]. ('[employer]') is accurate, up-to-date, and complete, but no guarantee is made to that effect. Drug information contained herein may be time sensitive. [employer] information has been compiled for use by healthcare practitioners and consumers in the [place] and therefore [employer] does not warrant that uses outside of the [place] are appropriate, unless specifically indicated otherwise. [employer] drug information does not endorse drugs, diagnose patients or recommend therapy. [employer] drug information is an informational resource designed to assist licensed healthcare practitioners in caring for their patients and/or to serve consumers viewing this service as a supplement to, and not a substitute for, the expertise, skill, knowledge and judgment of healthcare practitioners. The absence of a warning for a given drug or drug combination in no way should be construed to indicate that the drug or drug combination is safe, effective or appropriate for any given patient. [employer] does not assume any responsibility for any aspect of healthcare administered with the aid of information [employer] provides. The information contained herein is not intended to cover all possible uses, directions, precautions, warnings, drug interactions, allergic reactions, or adverse effects. If you have questions about the drugs you are taking, check with your doctor, nurse or pharmacist. Copyright 1313-3392 [employer]. Version: 10.. Revision Date: 12/30/2022. Education Materials Pharyngitis: Strep (Presumed) You have pharyngitis (sore throat). The healthcare staff think your sore throat is caused by streptococcus (strep) bacteria. This is often called strep throat. Strep throat can cause throat pain that is worse when swallowing, aching all over, headache, and fever. The infection is contagious. It may be spread by coughing, kissing, or touching others after touching your mouth or nose. Antibiotic medicine is given to treat the infection. Home care Rest at home. Drink plenty of fluids so you won t get dehydrated. Stay home from work or school for the first 2 days of taking the antibiotics. After this time, you will not be contagious. You can then return to work or school if you are feeling better. Take the antibiotic medicine for the full 10 days, even when you feel better. This is very important to make sure the infection is fully treated. It is also important to prevent medicine-resistant germs from growing. If you were given an antibiotic shot, no more antibiotics are needed. You may use acetaminophen or ibuprofen to control pain or fever, unless another medicine was prescribed for this. If you have chronic liver or kidney disease or ever had a stomach ulcer or GI bleeding, talk with your healthcare provider before using these medicines. Use throat lozenges or a throat-numbing spray to help reduce throat pain. Gargling with warm salt water can also help reduce throat pain. Dissolve 1/2 teaspoon of salt in 1 glass of warm water. Don t eat salty or spicy foods. These can irritate the throat. Follow-up care Follow up with your healthcare provider or our staff if you don't get better over the next week. When to seek medical advice Call your healthcare provider right away if any of these occur: Fever as directed by your healthcare provider New or worse ear pain, sinus pain, or headache Painful lumps in the back of neck Stiff neck Lymph nodes that get larger Can t swallow liquids, a lot of drooling, or can t open mouth wide due to throat pain Signs of dehydration, such as very dark urine or no urine, sunken eyes, dizziness Trouble breathing or noisy breathing Muffled voice New rash Prevention Here are steps you can take to help prevent an infection: Keep good hand washing habits. Don t have close contact with people who have sore throats, colds, or other upper respiratory infections. Don t smoke, and stay away from secondhand smoke. Stay up to date with of your vaccines. 4916-4429 [employer]. [address] [place] [address]. All rights reserved. This information is not intended as a substitute for professional medical care. Always follow your healthcare professional's instructions. Additional Information VACCINATE! IT SAVES LIVES! Members of the community who have not yet received the COVID-19 vaccine and would like to receive it can visit one of [facility] vaccine clinics. There are many vaccine clinic locations within the [facility]. For locations and available times, please visit [email or web address] [email or web address] It is important to note that some COVID mobile vaccine clinics are held outdoors and may be canceled in rainy or stormy conditions. To learn more about pediatric vaccinations (ages 5-11), we invite you to visit the [facility] webpage. https://www.[email or web address].org/pag es/0483-Oualq-Imiuxftuwbc-Frequent sk-Bxhny-Nbtjkbdih.html To learn more about the COVID-19 vaccine, we invite you to visit the CDC website for a list of frequently asked questions. https://www.cdc.gov/coronavirus/-ncov/vaccines/faq.html [facility] Patient Portal Access Instructions: Stay connected with your healthcare team and access your personal medical information anytime with the [facility] Patient Portal. If you would like a full copy of your medical records please contact the [facility] Medical Records Department Monday through Monday between 8a.m. and 4:30p.m. Please follow the directions below to access the portal: 1.Access the email account you provided upon registration to the [facility].2.Look for an invitation email from [facility].3.Open the email and access the invitation link: Accept Invitation to [facility].Fill in the required boles to create your account. Sign into [email or web address] with your username and password that you created in the above steps to stay up to date. You can then view a summary of results, a summary of your visits, and the ability to download your summaries to your computer or send the information securely to a physician. Remember that your healthcare information is confidential, so carefully consider who you will allow to register on the [facility] Patient Portal for access to your information. You can also access the [facility] Patient Portal on the [employer] mynor. Simply click on Health Records under Health Data and then click on the [employer] logo. HOW TO SAFELY DISPOSE OF PRESCRIPTION MEDICATIONS Please use one of the following methods to safely dispose of your unused medications. 1.Use a drug disposal kit: the drug disposal pouch allows you to safely discard your old and unused drugs. Ask your nurse to give you one when you are discharged.2.Visit a local take-back location: Many local pharmacies and police departments have programs that collect old and unwanted prescription drugs. Call your local pharmacy or go to http://bit.ly/9I2Om9s to find one close to you.3.Make use of household items: Use cat litter or old coffee grounds to dispose medications if other options are not available. Mix your drugs with these household products, seal them in an airtight container and throw it into the garbage. Call [facility]: [phone] to be sure your drugs can be disposed of in this way. Some medicines may require a different approach.4.Never flush your medications down the toilet. IF YOU HAVE BEEN PRESCRIBED AN OPIOIDS FOR PAIN If you have been prescribed an opioid (such as hydrocodone, oxycodone or morphine), it is critical to understand the possible side effects and risks of opioid pain medications. Even when taken as directed, opioids can have several side effects including: Tolerance, meaning you might need to take more of a medication for the same pain relief. Nausea, vomiting and/or constipation. Sleepiness, dizziness, dry mouth, confusion, depression or itching. Physical dependence, meaning you have withdrawal symptoms when a medication is stopped ? this can develop within a few days. KNOW YOUR RESPONSIBILITIES It is important to know exactly how much and how often to take the opioid pain medications you are prescribed. Never take opioids in higher amounts or more often than prescribed. Do not combine opioids with alcohol or other drugs that cause drowsiness, such as benzodiazepines, also known as benzos, including diazepam and alprazolam, muscle relaxants or sleep aids. Never sell or share prescription opioids. This is illegal. Store opioids in a secure place and out of reach of others (including children, family, friends and visitors). The last page(s) of this document has been signed and retained as a CHART COPY Signatures Patient Education Materials Pharyngitis, Strep (Presumed) Medication Leaflets erythromycin (oral/injection), Decadron My discharge plan and instructions have been reviewed and explained to me and IGORDON WILLIAM M understand my current condition and have read and understand these discharge instructions. I have received a written copy of the plan/instructions. If I have questions, I am aware that I should contact my doctor. Patient/Composite [employer] Signature: Date/Time: Relationship to Patient: ___ Witness Name/Signature: Date/Time: [facility] Kandice Nitza 07-05-2021 Hospital Discharge instructions Patient Education 07/05/2021 08:54:06 Viral Syndrome (Adult) Viral Syndrome (Adult) A viral illness may cause a number of symptoms such as fever. Other symptoms depend on the part of the body that the virus affects. If it settles in your nose, throat, and lungs, it may cause cough, sore throat, congestion, runny nose, headache, earache and other ear symptoms, or shortness of breath. If it settles in your stomach and intestinal tract, it may cause nausea, vomiting, cramping, and diarrhea. Sometimes it causes generalized symptoms like aching all over, feeling tired, loss of energy, or loss of appetite. A viral illness usually lasts anywhere from several days to several weeks, but sometimes it lasts longer. In some cases, a more serious infection can look like a viral syndrome in the first few days of the illness. You may need another exam and additional tests to know the difference. Watch for the warning signs listed below for when to seek medical advice. Home care Follow these guidelines for taking care of yourself at home: If symptoms are severe, rest at home for the first 2 to 3 days. Stay away from cigarette smoke - both your smoke and the smoke from others. You may use pvrc-dvy-fixwvxw acetaminophen or ibuprofen for fever, muscle aching, and headache, unless another medicine was prescribed for this. If you have chronic liver or kidney disease or ever had a stomach ulcer or gastrointestinal bleeding, talk with your healthcare provider before using these medicines. No one who is younger than 18 and ill with a fever should take aspirin. It may cause severe disease or . Your appetite may be poor, so a light diet is fine. Avoid dehydration by drinking 8 to 12, 8-ounce glasses of fluids each day. This may include water; orange juice; lemonade; apple, grape, and cranberry juice; clear fruit drinks; electrolyte replacement and sports drinks; and decaffeinated teas and coffee. If you have been diagnosed with a kidney disease, ask your healthcare provider how much and what types of fluids you should drink to prevent dehydration. If you have kidney disease, drinking too much fluid can cause it build up in the your body and be dangerous to your health. Uxja-zts-lsnvocx remedies won't shorten the length of the illness but may be helpful for symptoms such as cough, sore throat, nasal and sinus congestion, or diarrhea. Don't use decongestants if you have high blood pressure. Follow-up care Follow up with your healthcare provider if you do not improve over the next week. Call 911 Call 911 if any of the following occur: Convulsion Feeling weak, dizzy, or like you are going to faint Chest pain, or more than mild shortness of breath When to seek medical advice Call your healthcare provider right away if any of these occur: Cough with lots of colored sputum (mucus) or blood in your sputum Chest pain, shortness of breath, wheezing, or trouble breathing Severe headache; face, neck, or ear pain Severe, constant pain in the lower right side of your belly (abdominal) Continued vomiting (can t keep liquids down) Frequent diarrhea (more than 5 times a day); blood (red or black color) or mucus in diarrhea Feeling weak, dizzy, or like you are going to faint Extreme thirst Fever of 100.4 F (38 C) or higher, or as directed by your healthcare provider 0022-2231 [employer]. [address] [place] [address]. All rights reserved. This information is not intended as a substitute for professional medical care. Always follow your healthcare professional's instructions. Follow Up Care 07/05/2021 08:42:23 With:Follow up with primary care provider Address:Unknown When:2-4 days [facility] Consult note Note Date/Time January 06, 2025 2:07pm [facility] Medical Records Department [address] [place] [id number] Consultation - Orthopedics 01/06/25 1404 MR#: [id number] Acct: [id number] Name: GOPAL LEYVA JrMars Rep #: [id number] : 1990 34 From: Wei Perkins MD PCP: Dr. Fuad Saldaña MD Status:R EG ER Location: ED HPI Consult Data Date of Consult: 01/06/25 HPI Narrative HPI Narrative: GOPAL LEYVA, is a 34 M who presents L mid shaft radius fracture, proximal to prior long distal radius plate. punched a wall. REPLACED BY [facility] Medical History Insomnia Schizo affective schizophrenia Substance abuse Marijuana use Smoker History of fracture Home Medications ?Medication ?Instructions ?Recorded ?Last Taken ?Type NK 01/06/25 Unknown History Allergy/AdvReac Type Severity Reaction Status Date / Time No Known Allergies Allergy Verified 01/06/25 12:32 Social History Smoking Status: Current every day smoker tobacco type: cigarettes Vital Signs Vital Signs Vital Signs: 01/06/25 12:31 Temperature 98 F Temperature Source Temporal Pulse Rate 105 H Respiratory Rate 14 Blood Pressure 126/85 H Blood Pressure Mean 98 Pulse Ox 98 Oxygen Delivery Method Room Air Weight Weight: 157 lb 5.15 oz Body Mass Index (BMI) 23.2 Imaging L mid shaft radius fracture, proximal to prior long distal radius plate. Assessment & Plan Assessment/Plan (1) Closed left radial fracture: PLAN: GOPAL LEYVA, is a 34 M who presents L mid shaft radius fracture, proximal to prior long distal radius plate. punched a wall. splint for now. no need to reduce, these recommended for surgery. would need to take out the plate and do long LCDC plate. coud be more difficult case. unsure what kind of plate in there now. recommend to splint, and FU in clinic this week for further discussion, possibly refer out. 01/06/25 1407 <Electronically signed by Wei Perkins MD> Cosigner Signature (if applicable): CC: Dr. Fuad Saldaña MD~ Signed [facility] Work Phone: Evaluation + Plan note No data available for this section [facility] Evaluation noteNo assessment information available [facility] Work Phone: Evaluation note* Diagnosis STD exposure- [facility] Additional Instructions You received your first dose of antibiotics here in the emergency department. Take your second dose this evening. Follow-up with the dentist that you have an appointment with. If you want a new dentist please see the list of dental clinics that was provided to you. Return back to the ED if symptoms change or worsen. Tylenol and ibuprofen as needed for pain. You can take 1 g of Tylenol every 6 hours. You can take 600 mg of ibuprofen every 4-6 hours. Continue Orajel and mouthwash. Continue to brush her teeth. Recommend softer foods.[facility] Work Phone: Reason for referral (narrative)No reason for referral information availableWUniversity [facility] Work Phone: Summary Purpose Family History No Family History Records FoundNo Family History Records Found No data available for this section No data available for this section No Family History Records Found No data available for this section No Family History Records FoundNo Family History Records Found Advance Directives No Advanced Directives Records Found Advance Directive Response Recorded Date/ Time Advance Directives No June 03, 2017 6:18pm Living Will No September 08, 2021 12:58pm Power of Roll Up Machine Operator No September 08 12:58pm Advance Directive Response Recorded Date/ Time Advance Directives No June 03, 2017 5:18pm Living Will No July 11, 2 023 10:07am Power of Roll Up Machine Operator No July 11, 2022 10:07am Advance Directive Response Recorded Date/ Time Living Will No August 11, 2024 3:56pm Power of Roll Up Machine Operator No August 11 25 3:56pm Advance Directives No June 03, 2017 6:18pm Advance Directive Response Recorded Date/ Time Do you have a Healthcare Power of Roll Up Machine Operator? No January 06, 2025 12:56pm Advance Directives No June 03, 2017 6:18pm Chief Complaint and Reason for Visit Chief Complaint ARM COUGH Chief Complaint LAC Chief Complaint Admit Date DENTAL August 11, 2024 3:0 9pm Chief Complaint Admit Date ARM January 06, 2025 12 :31pm ARM January 06, 2025 2: 04pm Additional Source Comments (unrecognized sect ion and content) No Status Records FoundNo Status Records FoundNo Status Records FoundNo Status Records FoundNo Status Records Found INFORMATION SOURCE (unrecogn ized section and content) DATE CREATED AUTHOR 11/22/2017 [facility] DATE CREATED AUTHOR AUTHOR'S ORGANIZ ATION 07/06/2021 [facility] ([place]) DATE CREATED AUTHOR AUTHOR'S ORGANIZ ATION 01/01/2024 [facility] DATE CREATED AUTHOR AUTHOR'S ORGANIZ ATION 02/23/2024 [facility] DATE CREATED AUTHOR AUTHOR'S ORGANIZ ATION 01/24/2025 [facility] Goals (unrecognized section and content) Goals may be documented in a n alternate section Care Teams (unrecognized sec tion and content) Team Status: Active Member Role Status Dates No Primary Care Physician Family Provider Active Dr. Fuad Saldaña MD Primary Care Provider Active Team Status: Inactive Member Role Status Dates Dr. Manolo Fernandez DO Emergency Provider Active Dr. Fuad Saldaña MD Primary Care Provider Active Hospital Account Manager Relationship Specialty Start Date End Date Fuad Saldaña MD [address] [place] [address] PCP - General Internal Medicine 07/07/21 Hospital Account Manager Relationship Specialty Start Date End Date Fuad Saldaña MD [address] [place], [place] [id number] PCP - General Internal Medicine 07/07/21 Team Status: Active Member Role Status Dates Dr. Fuad Saldaña MD Primary Care Provider Active Team Status: Inactive Member Role Status Dates Dr. Fuad Saldaña MD Primary Care Provider Active Start: August 11, 2024 End: August 11, 2024 Dr. Isaac Orourke DO Referring Provider Activ e Start: August 11, 2024 End: August 11, 2024 Dr. Isaac Orourke DO Emergency Provider Activ e Start: August 11, 2024 End: August 11, 2024 Team Status: Active Member Role/Relationship Status Dates Dr. Fuad Saldaña MD Primary Care Provider Active Team Status: Inactive Member Role/Relationship Status Dates Dr. Fuad Saldaña MD Primary Care Provider Active Start: January 06, 2025 End: January 06, 2025 Dr. Shawn Trejo MD Emergency Provider Active Start: January 06, 2025 End: January 06, 2025 Team Status: Active Member Role/Relationship Status Dates Dr. Fuad Saldaña MD Primary Care Provider Active Start: January 06, 2025 Dr. Shawn Trejo MD Emergency Provider Active Start: January 06, 2025 Wei Perkins MD Attending Provider Active St art: January 06, 2025 Source Comments (unrecognize d section and content) In the event this informatio n is protected by the Federal Confidentiality of Alcohol and Drug Abuse Patient Records regulations: The Federal rules restrict any use of the information to criminally investigate or prosecute any alcohol or drug abuse patient.[facility] the event this information is protected by the Federal Confidentiality of Alcohol and Drug Abuse Patient Records regulations: The Federal rules restrict any use of the information to criminally investigate or prosecute any alcohol or drug abuse patient.[facility] Reason for Visit (unrecogniz ed section and content) Reason Comments STD Std testing, gonorrh ea Specialty Diagnoses / Procedures Referred By Contac t Referred To Contact Internal [facility] / [facility] Diagnoses Std testing Procedures EST SAME DAY [facility] [address] [place] [address] Referral ID Status Reason Start Date Expiration Date Visits Requested Visits Authorized [id number] New Request Financial Clearance Required - Self Pay 12/25/2023 03/24/2024 1 1 Reason Comments Results FOR RECORDS PERTAINING TO PATIENTS WHO ARE OR HAVE BEEN ENROLLED IN A CHEMICAL DEPENDENCY/SUBSTANCEABUSE PROGRAM, SOME INFORMATION MAY BE OMITTED. This clinical summary was aggregated from multiple sources. Caution should be exercised in using it in the provision of clinical care. This summary normalizes information from multiple sources, and as a consequence, information in this document may materially change the coding, format and clinical context of patient data. In addition, data may be omitted in some cases. CLINICAL DECISIONS SHOULD BE BASED ON THE PRIMARY CLINICAL RECORDS. [facility]. provides no warranty or guarantee of the accuracy or completeness of information in this document.
[2025-05-03] MEDS: Ketorolac 30 MG/ML Syringe IM (00:13)
[2025-05-03 00:14] VITALS: BP 149/88; PULSE 87; RESP 18; TEMP 36.6; O2SAT 97
--- NOTE | 2025-05-03 00:26 | EDS_ITS ---
HPI History of Present Illness Chief Complaint: Upper Extremity Injury Narrative Narrative: Patient was seen and examined after presenting to ED for left upper extremity pain that he wanted evaluated it was at his forearm he has a history in which he ended up fracturing his forearm and ended up getting surgical management for it and then 1 day when he punched some inanimate object ended up refracturing near that site and was supposed to have surgery but because of lack of insurance he was unable to get the surgery so it ended up healing on its own but he started having some pain mostly with use in his mid forearm he also is complaining of this fractured tooth that he has with dental caries states that he needs to get into see a dentist[facility] Medical History Insomnia Schizo affective schizophrenia Substance abuse Marijuana use Smoker History of fracture Home Medications ?Medication ?Instructions ?Recorded ?Last Taken ?Type amoxicillin 875 mg-potassium 875 mg PO Q12H #14 TABLET S 05/03/25 Unknown Rx clavulanate 125 mg tablet Allergy/AdvReac Type Severity Reaction Status Date / Time No Known Allergies Allergy Verified 05/02/25 23:06 Social History Smoking Status: Current every day smoker tobacco type: cigarettes ROS ROS ED ROS Narrative Pertinent Positives: Left mid forearm pain some dental caries Pertinent Negatives: Fevers chills swelling numbness tingling vomiting redness new trauma The remainder of review of systems negative unless otherwise stated in the HPI above. Systems reviewed including constitutional, psychiatric, cardiovascular, respiratory, integument, HENT, gastrointestinal. EXAM Physical Exam Narrative Exam Narrative: Afebrile hemodynamically stable does not appear toxic or in distress she is normocephalic and atraumatic oropharynx he has a fractured tooth with dental caries is a left lower molar no apical or periapical abscess there no evidence of trench mouth no Martin's angina lingual or sublingual edema or angioedema normal range of motion of his head and neck no uvular deviation. Normal range of motion of the head and neck. His extremities he has soft compartments and intact MSPs no overlying erythema crepitus vesicular lesions or other skin discoloration he has full range of motion Const Vital Signs: 05/02/25 23:06 05/03/25 00:14 Temperature 97.9 F 98 F Temperature Source Oral Pulse Rate 113 H 87 Respiratory Rate 18 18 Blood Pressure 150/104 H 149/88 H Blood Pressure Mean 119 108 Pulse Ox 100 97 MDM MDM MDM Narrative Medical decision making narrative: Nursing notes, triage notes, available previous documentation, and vital signs were reviewed. Any discrepancies noted were addressed. Differential Diagnoses: Tendinitis of his forearm not compartment syndrome or an infectious process or necrotizing process not cellulitic. He has dental caries with fractured tooth not trench mouth Interventions: Acetaminophen and Toradol Previous Documentation Reviewed: None available or applicable at this time. ED Course: Patient presenting with symptoms as described above he was given a prescription for Augmentin for his dental caries and possible infection there I did offer to do plain films of his left forearm but he ultimately declined he is given return precautions follow-up recommendations patient stable for discharge. This note was made utilizing voice recognition software. All attempts were made to correct spelling or other errors prior to note completion. However, due to the fast-paced nature of emergency medicine, some errors may still be present. Discharge Plan Triage Chief Complaint: Upper Extremity Injury ED Provider: Nancy Jimenez Dx/Rx/DC Orders Clinical Impression: Encounter for medical screening examination, Tendinitis of left forearm, Dental caries Instructions: ED Dental Cavity, ED Tendonitis Prescriptions: New amoxicillin-pot clavulanate 875-125 mg tablet 875 mg PO Q12H Qty: 14 0RF Primary Care Provider: Fuad Nash Referrals: Fuad Nash MD [Primary Care Provider, Internal Medicine] Print Language: Urdu
== END 2025-05-03 00:34 | disposition home or self-care (01) ==
PROVIDERS: Emergency Provider Specialist/Technologist Athletic Trainer; PCP Internal Medicine; Visit Provider Specialist/Technologist Athletic Trainer
DX: M77.8 Other enthesopathies, not elsewhere classified (principal); K02.9 Dental caries, unspecified; F17.210 Nicotine dependence, cigarettes, uncomplicated
CPT/HCPCS: 96372; 99282